=== PATIENT | female | born 1950 | race Caucasian/White ===

== ENCOUNTER 2025-03-25 10:24 | Emergency (ER) | payer MEDICARE, SELFPAY ==
--- NOTE | ~2025-03-25 | XR_ITS ---
CLINICAL HISTORY: injury --- Additional Notes or Special Instructions: she is ambulatory 5 view right wrist Comparison: None provided Findings: There is a mildly comminuted intra-articular distal right radial fracture. Chondrocalcinosis noted. Degenerative changes throughout the wrist. Impression: Mildly comminuted intra-articular distal right radial fracture with soft tissue edema. This document has been electronically signed by: Steve Valle MD on 03/25/2025 11:32:30
[2025-03-25 10:27] VITALS: BP 147/62; PULSE 72; RESP 16; TEMP 36.6; O2SAT 94; BMI 34.2
[2025-03-25 10:39] VITALS: BP 117/56; PULSE 68; PULSE 70; RESP 14; O2SAT 94; O2SAT 95
--- NOTE | 2025-03-25 10:43 | ED.UPPEXIN ---
HPI - Extremity Injury (Upper) General Chief Complaint: Fall Stated Complaint: r wrist inj fall Time Seen by Provider: 03/25/25 10:31 Source: patient Mode of arrival: ambulatory Limitations: no limitations History of Present Illness ED Provider: HPI narrative: 74-year-old woman, sustained a FOOSH injury to her right wrist, that was yesterday, presented to ER today with swelling and painful right wrist, she is right-hand dominant, denies any trauma to the head and neck all extremities has been ambulatory. This was a nonsyncopal fall Related Data Previous Rx's ?Medication ?Instructions ?Recorded oxycodone 5 mg tablet 5 mg PO Q6H PRN pain #10 tabs 03/25/25 Allergies Allergy/AdvReac Type Severity Reaction Status Date / Time No Known Allergies Allergy Verified 03/25/25 10:28 Review of Systems Constitutional: Constitutional: Reports as per [facility] Social History Social History Smoked in Last 30 Days: No Use of substances other than those prescribed or required for medical reasons: No Advance Directives: Yes Advance Directives Information Provided: No Advance Directives on File: No Do you have a plan to hurt others: No Plan Physical Exam Vital Signs: Vital Signs: Last Vital Signs Temp 98 F 03/25/25 10:27 Pulse 68 03/25/25 10:39 Resp 14 03/25/25 10:39 BP 117/56 L 03/25/25 10:39 Pulse Ox 95 03/25/25 10:39 O2 Del Method Room Air 03/25/25 10:39 BMI result Body Mass Index 34.2 Const: Other: Gen: ?Overall well-appearing patient, no trauma MSK: Full range of motion of the right elbow, right shoulder, swelling with hematoma over the dorsum of right wrist, radial ulnar +2 she is able to spread her fingers, not fully able to make a fist due to swelling, is able to hitchhike a thumb Skin: Warm, dry, intact, Neuro: ?Alert and oriented x3, moving upper and lower extremities symmetrically, no obvious facial asymmetry noted Medications Administered Discontinued Medications Generic Name Dose Route Start Last Admin Trade Name Freq PRN Reason Stop Dose Admin Acetaminophen 975 mg 03/25/25 10:40 03/25/25 10:59 Acetaminophen 325 Mg Tablet PO 03/25/25 10:41 975 mg ONCE ONE Administration Oxycodone HCl 5 mg 03/25/25 10:40 03/25/25 11:00 Oxycodone Hcl Immed Release 5 Mg Tablet PO 03/25/25 10:41 5 mg ONCE ONE Administration Medical Decision Making Medical Decision Making [facility] Narrative: Nonsyncopal fall did not feel further workup such as ECG a blood work was indicated, no head trauma no neck trauma after a fall did not feel further imaging such as CT of the brain or cervical spine is indicated, she has swelling of the distal radius, likely Colles fracture, closed without neurovascular compromise, we will obtain imaging determined whether she needs reduction or just splinting for alignment and ortho follow up 1157: Splint applied, and sent patient is in for to orthopedic PA covering to make sure she has an appointment and providing of the referral as well, patient is doing well Differential Diagnosis Differential Diagnoses: The differential diagnosis associated with the presentation includes See above Independent Interpretation I performed an independent interpretation of an: Plain X-Ray Interpretation: Patient has nondisplaced distal radius fracture with intra-articular component, my independent interpretation Radiology Impression Discussion of test interpretation with radiology: I have reviewed the radiologist's reading. Radiologist Impression: Mildly comminuted intra-articular distal right radial fracture with soft tissue edema. Procedures Orthopedic Splinting/Casting Injury #1: Side: right Upper Extremity Injury Location: wrist Upper Extremity Immobilizer: sugar tong splint Discharge Plan Discharge Clinical Impression: Distal radial fracture Qualifiers: Encounter type: initial encounter Fracture type: closed Fracture morphology: Colles' Laterality: right Qualified Code(s): S52.531A - Colles' fracture of right radius, initial encounter for closed fracture Patient Disposition: Home, Self-Care Instructions: Arm Fracture in Adults (ED) Additional Instructions: Keep the wrist in splint, elevated above heart level throughout the day, [address] a few pillows to keep it elevated to decrease the swelling, keep the splint clean dry and in place, Tylenol 975 mg every 6 hours as needed for pain with oxycodone for additional pain control if required, be mindful as it can make you drowsy make sure do not mix with alcohol marijuana, any other issues concerns any worsening pain worsening swelling inability to move your digits come back to the ER Prescriptions: New oxycodone 5 mg tablet 5 mg PO Q6H PRN (Reason: pain) Qty: 10 0RF Rx Instructions: Partial Fill upon patient request. Referrals: [facility] [place] Orthopedic Surgeons [Provider Group, Orthopedics] - 1 week Clinical Impression: Distal radial fracture Print Language: Albanian
--- NOTE | 2025-03-25 10:45 | PC.NURSE ---
Patient A&Ox 3. Patient presents to ED c/o right wrist pain after a fall at home. Pain rated 5/10 non radiating. Right wrist swollen and warm +CMS +ROM in fingers limited ROM in right wrist. Intermittent numbness noted, none at this time. No precipitating factors before fall, patient just lost balance. Denies headstrike, LOC, SOB. VSS and up to date. Plan of care on going.
[2025-03-25] MEDS: Acetaminophen 325 MG TABLET 975 MG PO (10:59)
[2025-03-25] MEDS: oxyCODONE HCl Immed Release 5 MG TABLET PO (11:00)
[2025-03-25 12:21] VITALS: BP 172/93; PULSE 82; RESP 16; TEMP 36.4; O2SAT 100
[2025-03-25 12:27] VITALS: BP 172/93; PULSE 82; RESP 16; TEMP 36.4; O2SAT 100
== END 2025-03-25 12:30 | disposition home or self-care (01) ==
PROVIDERS: Emergency Provider Emergency Medicine; PCP Internal Medicine
DX: S52.531A Colles' fracture of right radius, initial encounter for closed fracture (principal); W01.0XXA Fall on same level from slipping, tripping and stumbling without subsequent striking against object, initial encounter; M25.531 Pain in right wrist; Y93.E5 Activity, floor mopping and cleaning; Y92.019 Unspecified place in single-family (private) house as the place of occurrence of the external cause; Y99.9 Unspecified external cause status
CPT/HCPCS: 29125; 73110; 99283; 99284

== ENCOUNTER → 2025-03-25 10:40 | Outpatient (BNV) | payer MEDICARE, SELFPAY | PROVIDERS: Emergency Provider Emergency Medicine; PCP Internal Medicine; Visit Provider Radiology Vascular & Interventional Radiology | DX: S52.571A Other intraarticular fracture of lower end of right radius, initial encounter for closed fracture (principal) | CPT/HCPCS: 73110 ==

== ENCOUNTER 2025-03-31 13:16 | Outpatient (REF) | payer MEDICARE, SELFPAY ==
--- NOTE | ~2025-03-31 | XR_ITS ---
CLINICAL HISTORY: M25.531 - Pain in right wrist Right wrist three views Comparison: 03/25/2024 Findings: No change in distal radial fracture. No new bony abnormality identified. Degenerative change throughout the wrist. No radiopaque foreign body noted. Impression: Unchanged distal radial fracture This document has been electronically signed by: Royer Alejandra MD on 04/01/2025 20:53:56
== END 2025-03-31 13:17 | disposition home or self-care (01) ==
LOC: HO.HOSX 13:16
PROVIDERS: PCP Internal Medicine
DX: S52.531A Colles' fracture of right radius, initial encounter for closed fracture (principal)
CPT/HCPCS: 25600; 73110; 99202

== ENCOUNTER 2025-03-31 13:16 | Outpatient (AMB) | payer MEDICARE, SELFPAY ==
--- NOTE | 2025-03-31 13:32 | MHC.OFFVIS ---
Vital Signs 03/31/25 13:43 Height 5 ft 3 in Weight 190 lb BMI 33.7 Handedness Right Intake Visit Reasons: FX-Right wrist intraarticular distal radius fx Intake Note: Lauryn 74 yr old right hand dominant female presents today for a fracture care visit for her right wrist fracture. States while at home she fell and put her hand out to break her fall. States she felt pain and was seen in ED following day where xrays were taken and was told she has a fracture. Patient was splinted and referred to orthopedic. Currently splint removed in office, states she has no pain however she does have swelling,limited ROM and discoloration. Allergies No Known Allergies Allergy (Verified 03/31/25 13:43) HPI HPI FX-Right wrist intraarticular distal radius fx: Details: Lauryn 74 yr old right hand dominant female presents today for a fracture care visit for her right wrist fracture. States while at home she fell and put her hand out to break her fall. States she felt pain and was seen in ED following day where xrays were taken and was told she has a fracture. Patient was splinted and referred to orthopedic. Currently splint removed in office, states she has no pain however she does have swelling,limited ROM and discoloration. [facility], [facility] Social History (Updated 03/31/25 @ 13:44 by BAHMAN Freitas) Current occupational status: retired Current occupation: rt hand Review of Systems Const All systems reviewed & are unremarkable except as noted in HPI and below Physical Exam Vital Signs: BMI result Body Mass Index 33.7 Extrem Other: Patient is alert, oriented, and in no acute distress. Neuro: Normal sensation of the tips of all digits of the right hand at this time Vascular: Cap refill brisk Pain: Tenderness to palpation about the right distal radius No discomfort with range of motion of the digits of the right hand ROM: Patient is able to make closed fist with the right hand Skin: No lacerations or abrasions. General: Significant edema and ecchymosis noted of the right wrist No erythema, open areas, evidence of infection Psych: Appears grossly normal Affect normal Attitude cooperative Office Procedures AMB Fracture Care Fracture Billing Code: Fracture Billing Code Results Reviewed Results Reviewed: X-rays obtained in the office today and independently reviewed by , Nitin Chirinos PA-C, demonstrate nondisplaced, comminuted, intra-articular fracture of the right distal radius Assessment & Plan Assessment & Plan (1) Distal radial fracture: Code(s): S52.509A - Unspecified fracture of the lower end of unspecified radius, initial encounter for closed fracture Category: Medical Qualifiers: Encounter type: initial encounter Fracture morphology: Colles' Fracture type: closed Laterality: right Qualified Code(s): S52.531A - Colles' fracture of right radius, initial encounter for closed fracture Plan 1. Right distal radius fracture Date of injury 03/25/2025 Patient is educated about this injury Patient is educated about the typical recovery course At this time, patient is placed into a short-arm splint Patient is educated on proper splint care and precautions Patient is amenable to this plan Follow-up in 2 weeks for reassessment, anticipate cast placement at that time, sooner with any acute concerns Orders: Orders XR wrist RT min 3V 03/31/25 M25.531 - Pain in right wrist Coding Level of Care Code New Pt Level 3 (75966) Diagnoses Distal radial fracture S52.531A Encounter type: initial encounter Fracture morphology: Colles' Fracture type: closed Laterality: right CPT Codes Fracture Care - Fracture Billing Code: Fracture Billing Code ([id number])
[2025-03-31 13:43] VITALS: BMI 33.7
--- OUTSIDE RECORDS SUMMARY | 2025-03-31 13:46 | XMS_ITS | Clinical Summary ---
Author Organization 175 [facility] Address [address] [place] [address] Phone Care Team Providers Care Probation And Parole Officer Name Role Phone Angie Ames MD Primary Care Provider [phone] Allergies No known active allergies Medications losartan (COZAAR) 50 mg tablet Take 1 Tablet by mouth daily. 09/18/20 23 Active oxymetazoline (No Drip) 0.05 % nasal spray 2 Sprays by Nasal route 2 times daily. 04/09/20 23 Active tacrolimus (PROTOPIC) 0.1 % ointment Apply small amount to affected areas BID for 4 weeks 04/01/20 21 Active ascorbic acid (VITAMIN C) 500 mg tablet Take 500 mg by mouth daily. Active calcitrioL (ROCALTROL) 0.25 mcg capsule Take 0.25 mcg by mouth daily. Active zinc sulfate (ZINCATE) 220 mg (50 mg elemental zinc) capsule Take 1 Tab by mouth daily. Active aspirin 81 mg EC tablet Take 81 mg by mouth daily. Active carvediloL (COREG) 12.5 mg tablet Take 1 tablet (12.5 mg total) by mouth 2 (two) times a day with meals. 180 tablet 3 08/29/20 24 Active famotidine (PEPCID) 20 mg tablet TAKE 1 TABLET BY MOUTH TWICE DAILY 180 tablet 3 10/16/19 25 Active sertraline (ZOLOFT) 100 mg tablet Take 1 tablet (100 mg total) by mouth 1 (one) time each day. 90 tablet 1 12/17/19 25 Active magnesium oxide (MAG-OX) 400 mg (241.3 elemental magnesium) tablet Take 1 tablet (400 mg total) by mouth 1 (one) time each day. 270 tablet 1 01/20/20 25 Active betamethasone, augmented, (DIPROLENE) 0.05 % ointment APPLY TOPICALLY TWICE DAILY 30 g 3 02/22/20 25 Active triamcinolone (KENALOG) 0.1 % cream Apply topically 1 (one) time each day. 60 g 1 02/25/20 25 Active loperamide (IMODIUM) 2 mg capsule Take 2 capsules (4 mg total) by mouth 3 (three) times a day. 540 capsule 1 03/28/20 25 Active loperamide (IMODIUM) 2 mg capsule TAKE 2 CAPSULES BY MOUTH 3 TIMES DAILY 02/08/20 24 025 Discontinued Active Problems Problem Noted Date Diagnosed Date Chronic pain of both knees 01/25/2024 Gait instability 01/25/2024 Primary osteoarthritis of left knee 01/25/2024 Primary osteoarthritis of right knee 01/25/2024 Bacterial endocarditis 02/21/2021 Hypertension 03/10/2018 CKD (chronic kidney disease) stage 3, GFR 30-59 ml/min ([facility] V24, [facility] V28) 05/05/2017 Left heart failure ([facility] V24, [facility] V28) Allergic rhinitis 09/04/2015 Depression 09/04/2015 Vitamin B12 deficiency 02/27/2015 GERD (gastroesophageal reflux disease) 4 Immunizations Name Administration Dates Next Due Influenza trivalent, 0.5mL ( Fluzone High-dose) 65yo and older 07/06/2019 Influenza trivalent, with pr eservative (Fluzone; Afluria) 6mo and older 06/18/2018 Influenza, Unspecified 06/12/2022 [facility] SARS-CoV-2 COVID-19, mRNA, LNP-S, preservative free 02/07/2022 [facility] SARS-CoV-2 COVID-19, mRNA, LNP-S, preservative free 08/11/2021,01/12/2021,12/22/2020 Pneumococcal conjugate 13 va lent (Prevnar 13, PCV13) 2mo and older 09/10/2016 Pneumococcal polysaccharide 23 valent (Pneumovax 23) 2yo and older 02/14/2015 Zoster recombinant (Shingrix ) 19yo and older 06/12/2022 Surgical History Surgery Date Site/Laterality Comments HERNIA REPAIR PROCEDURE: HISTORICAL HERNIA REPAIR/[facility] HYSTERECTOMY PROCEDURE: HISTORICAL HYSTERECTOMY OTHER SURGICAL HISTORY PROCEDURE: VA COLECTOMY TOT ABDL W/PROCTECTOMY W/CONTNT ILEOST OTHER SURGICAL HISTORY PROCEDURE: HISTORY OTHER; COMMENT: reversal ileostomy Medical History Medical History Date Comments CKD (chronic kidney disease) stage 3, GFR 30-59 ml/min ([facility] V24, [facility] V28) 05/05/2017 DX:CKD (chronic kidney disea se) stage 3, GFR 30-59 ml/min ([facility]) Allergic rhinitis 09/04/2015 DX:Allergic rh initis Depression 09/04/2015 DX:Depression GERD (gastroesophageal reflux disease) 12/14/2013 DX:GERD (gastroesophageal reflux disease) History of uterine cancer 02/22/2013 DX:His tory of uterine cancer Hypertension 03/10/2018 DX:Hypertension Left heart failure ([facility] V24, [facility] V28) 05/02/2016 DX:Left heart failure ([facility]) Vitamin B12 deficiency 02/27/2015 DX:Vitami n B12 deficiency Family History Medical History Relation Name Comments Prostate cancer Brother Heart attack Father Hyperlipidemia Father Hyperlipidemia Mother Relation Name Status Comments Brother Father Mother Social History Tobacco Use Types Packs/Day Years Used Date Smoking Tobacco: Former Smokeless Tobacco: Never Alcohol Use Standard Drinks/Week Comments No 0 (1 standard drink = 0.6 oz pur e alcohol) Comments Unknown Sex and Gender Information Value Date Recorded Sex Assigned at Not on file Legal Sex Female 3:29 PM EST Gender Identity Not on file Sexual Orientation Not on file Obstetrics History Last Filed Vital Signs Vital Sign Reading Time Taken Comments Blood Pressure 130/80 09/20/2024 2:49 PM EST Pulse 87 09/20/2024 2:48 PM EST Temperature 36.6 C (97.8 F) 09/20/2024 2:48 PM EST Respiratory Rate - - Oxygen Saturation 96% 09/20/2024 2:48 PM EST Inhaled Oxygen Concentration - - Weight 81.6 kg (180 lb) 11/03/2024 3:49 PM EST Height 160 cm (5' 2.99 ) 11/03/2024 3:49 PM EST Body Mass Index 31.89 11/03/2024 3:49 PM EST Plan of Treatment Upcoming Encounters Date Type Department Care Team (Late st Contact Info) Description 04/25/2025 3:30 PM EDT Office Visit Orthopedic Surgery - [place] [address] [phone] Yaya Whitlock, DPM [address] [phone] Health Maintenance Due Date Last Done Comments DTaP,Tdap,and Td Vaccines (1 - Tdap) 12[birth year]26/1969 Hepatitis C Screening 09/13/2022 Osteoporosis Screening (Bone Density Screening) 09/13/2022 Social Influencers of Health Screening 09/13/2022 COVID-19 Vaccine (8 - Pfizer risk season) 2025 07/10/2024, 08/08/2023, 08/07/2022, Additional history exists Depression Screening 03/21/2025 03/21/2024 Falls Risk Assessment 03/21/2025 03/21/2024 Medicare Annual Wellness Visit 03/21/2025 03/21/2024 Hypertension/CHF/CAD Annual BMP Blood Test 09/23/2025 09/23/2024, 03/25/2024, 03/25/2024, Additional history exists Cholesterol Screening (Lipid Panel) 03/25/2029 03/25/2024, 03/25/2024 Pneumococcal Vaccine: 50+ Years Completed 06/18/2018, 09/10/2016, 02/14/2015, Additional history exists Zoster Vaccines Completed 12/15/2022, 06/12/2022 Breast Cancer Screening Discontinued 08/21/20, 08/19/2022, 08/16/2021, Additional history exists Influenza Vaccine Completed 07/23/2024, , 07/17/2022, Additional history exists RSV Immunization Adult Patients Completed 08/26/2024 HIB Vaccines Aged Out No longer eligi ble based on patient's age to complete this topic HPV Vaccines Aged Out No longer eligi ble based on patient's age to complete this topic Hepatitis A Vaccines Aged Out No long er eligible based on patient's age to complete this topic Hepatitis B Vaccines Aged Out No long er eligible based on patient's age to complete this topic IPV Vaccines Aged Out No longer eligi ble based on patient's age to complete this topic MMR Vaccines Aged Out No longer eligi ble based on patient's age to complete this topic Meningococcal ACWY Vaccine Aged Out N o longer eligible based on patient's age to complete this topic Meningococcal B Vaccine Aged Out No l onger eligible based on patient's age to complete this topic RSV Immunization Patients Under 20 months Aged Out No longer eligible based on patient's age to complete this topic Varicella Vaccines Aged Out No longer eligible based on patient's age to complete this topic Procedures Procedure Name Priority Date/Time Associated Diagnosis Comments COMPREHENSIVE METABOLIC PANEL Routine 09/23/2024 11:36 AM EST Rib pain on left side Primary hypertension Stage 3a chronic kidney disease (CMS/HCC V24, CMS/HCC V28) Vitamin B12 deficiency Depression, unspecified depression type Hypomagnesemia LIPID PANEL Routine 03/25/2024 DEPRESSION SCREENING Routine 03/21/2024 FALLS RISK ASSESSMENT Routine 03/21/2024 ROSA SCREENING DIGITAL Routine 08/21/2023 9:30 AM EST Encounter for screening mammogram for malignant neoplasm of breast from Last 3 Months or Most Recently Relevant to Health Maintenance Results * (ABNORMAL) Comprehensive metabolic panel (09/23/2024 11:36 AM EST) Sodium 141 133 - 145 mmol/L LAB CHEMISTRY METHOD 09/23/2024 3:49 PM EST [facility] Potassium 4.6 3.5 - 5.5 mmol/L LAB CHEMISTRY METHOD 09/23/2024 3:49 PM EST [facility] Chloride 112(H) 96 - 110 mmol/L LAB CHEMISTRY METHOD 09/23/2024 3:49 PM EST [facility] CO2 24 21 - 32 mmol/L LAB CHEMISTRY METHOD 09/23/2024 3:[address] [facility] Anion Gap 5 3 - 11 LAB CHEMISTRY METHOD 09/23/2024 3:[address] [facility] Glucose 97 70 - 100 mg/dL LAB CHEMISTRY METHOD 09/23/2024 3:[address] [facility] BUN 23 5 - 25 mg/dL LAB CHEMISTRY METHOD 09/23/2024 3:[address] [facility] Creatinine 1.45(H) 0.50 - 1.10 mg/dL LAB CHEMISTRY METHOD 09/23/2024 3:[address] [facility] eGFR 38(L) >=60 mL/min/1. 73m2 LAB CHEMISTRY METHOD 09/23/2024 3:[address] [facility] Comment:Calculation based on the Chronic Kidney Disease Epidemiology Collaboration (CKD-EPI) equation refit without adjustment for race. BUN/Creatinine Ratio 15.9 LAB CHEMISTRY METHOD 09/23/2024 3:[address] [facility] Calcium 8.8 8.5 - 10.5 mg/dL LAB CHEMISTRY METHOD 09/23/2024 3:[address] [facility] AST (SGOT) 13 10 - 42 unit/L LAB CHEMISTRY METHOD 09/23/2024 3:[address] [facility] ALT (SGPT) 18 10 - 60 unit/L LAB CHEMISTRY METHOD 09/23/2024 3:[address] [facility] Alkaline Phosphatase 127(H) 42 - 121 unit/L LAB CHEMISTRY METHOD 09/23/2024 3:[address] [facility] Total Protein 5.9(L) 6.0 - 8.0 g/dL LAB CHEMISTRY METHOD 09/23/2024 3:[address] [facility] Albumin 2.9(L) 3.2 - 5.0 g/dL LAB CHEMISTRY METHOD 09/23/2024 3:[address] [facility] Total Bilirubin 0.5 0.0 - 1.4 mg/dL LAB CHEMISTRY METHOD 09/23/2024 3:49 PM EST [facility] Blood Venous blood specimen / Unknown Venipuncture / Unknown 09/23/2024 11:36 AM EST 09/23/2024 11:36 AM EST Angie Ames MD LAB BLOOD ORDERABLES Final Res ult [facility] [address] [place] [address], * (ABNORMAL) Lipid panel (03/25/2024) LDL/HDL Ratio 4 0 - 4 Triglycerides 161(A) 0 - 150 mg/dL Cholesterol 175 0 - 200 mg/dL HDL 45 >=40 mg/dL LDL Cholesterol 98 0 - 100 mg/dL Blood Venous blood specimen / Unknown Historical Provider LAB BLOOD ORDERABLES Wendy l Result * Falls Risk Assessment (03/21/2024) Falls Risk Assessment Abstracted Historical Provider HEALTH MAINTENANCE Final Result * Depression Screening (03/21/2024) Pathologist [facility] Depression Screening Abstracted Historical Provider HEALTH MAINTENANCE Final Result * ROSA SCREENING DIGITAL (08/21/2023 9:30 AM EST) Anatomical Region Laterality Modality Mammography 08/21/2023 8:28 AM EST Narrative 08/21/2023 9:30 AM EST [facility] Diagnostic Imaging Department [address] [place], [place] [id number] Patient: LAURYN CALIXTO /Age/Sex: 1950 - 72 - F Unit#: [id number] Location/Status: SPDIMAM/REG CLI Mnemonic/Ordering Site: [facility] Ordering Physician: ANGIE AMES MD [facility] Screening Digital - 08/21/23847 Report Status:Signed EXAM: [facility] Screening Digital EXAM DATE AND TIME: 08/21/2023 8:48 AM HISTORY: Screening. Left breast biopsy in 2010, pathology benign. Personal history of endometrial carcinoma. Maternal aunt had breast carcinoma. COMPARISON: 08/19/22, 08/16/21, 08/14/20 TECHNIQUE: Bilateral digital breast tomosynthesis was performed in the CC and MLO projections. Computer aided detection with Show[employer] 3D 3.1 was employed. TISSUE DENSITY: a. The breasts are almost entirely fatty. FINDINGS: No suspicious masses, grouped microcalcifications, or areas of architectural distortion are seen. Benign rim calcifications are again seen. Vascular calci fications are present. The skin is unremarkable. IMPRESSION: Stable mammographic appearance of the breasts. No evidence of malignancy is seen. A negative mammogram in the presence of a clinically suspicious palpable abnormality does not preclude the possibility of malignancy or alter the indications for biopsy. BI-RADS: Category 2: Benign RECOMMENDATION(S): 1: Routine screening mammogram BILATERAL in 1 year. Dictating Physician: JESS POPE MD Electronically Signed by: JESS POPE MD Dic Date/Time: 08/21/23925 Sign date/Time: 08/21/23929 Procedure Note Jess Pope MD - 11/10/2023 [facility] Diagnostic Imaging Department [address] [place] [address] Patient: LAURYN CALIXTO /Age/Sex: 1950 - 72 - F Unit#: [id number] Location/Status: SPDIMAM/REG CLI Mnemonic/Ordering Site: [facility] Ordering Physician: ANGIE AMES MD [facility] Screening Digital - 08/21/2348 Report Status:Signed EXAM: [facility] Screening Digital EXAM DATE AND TIME: 08/21/2023 8:48 AM HISTORY: Screening. Left breast biopsy in 2010, pathology benign.Personal history of endometrial carcinoma. Maternal aunt had breast carcinoma. COMPARISON: 08/19/22, 08/16/21, 08/14/20 TECHNIQUE: Bilateral digital breast tomosynthesis was performed in the CCand MLO projections. Computer aided detection with [employer] | 3pay AI 3D 3.1was employed. TISSUE DENSITY: a. The breasts are almost entirely fatty. FINDINGS: No suspicious masses, grouped microcalcifications, or areas ofarchitectural distortion are seen. Benign rim calcifications are again seen. Vascularcalci fications are present. The skin is unremarkable. IMPRESSION: Stable mammographic appearance of the breasts. No evidence of malignancyis seen. A negative mammogram in the presence of a clinically suspicious palpable abnormality does not preclude the possibility of malignancy or alter the indications for biopsy. BI-RADS: Category 2: Benign RECOMMENDATION(S): 1: Routine screening mammogram BILATERAL in 1 year. Dictating Physician: JESS POPE MD Electronically Signed by: EJSS POPE MD Dic Date/Time: 08/21/23925 Sign date/Time: 08/21/23929 Angie Ames MD IMG BI PROCEDURES Final Result from Last 3 Months or Most Recently Relevant to Health Maintenance Insurance [facility] Care Teams Probation And Parole Officer Relationship Specialty Start Date End Date Angie Ames MD [address] [place] [phone] PCP - General Internal Medicine 08/17/18"
== END 2025-03-31 14:21 | disposition home or self-care (01) ==
LOC: HO.HOS 13:16
PROVIDERS: PCP Internal Medicine
DX: S52.531A Colles' fracture of right radius, initial encounter for closed fracture (principal)
CPT/HCPCS: 25600; 99203

== ENCOUNTER → 2025-03-31 13:19 | Outpatient (BNV) | payer MEDICARE, SELFPAY | PROVIDERS: PCP Internal Medicine; Visit Provider Radiology Diagnostic Radiology | DX: M25.531 Pain in right wrist (principal) | CPT/HCPCS: 73110 ==

== ENCOUNTER 2025-04-11 13:21 | Outpatient (REF) | payer MEDICARE, SELFPAY ==
--- NOTE | ~2025-04-11 | XR_ITS ---
EXAMINATION: XR WRIST, RIGHT CLINICAL INFORMATION: M25.531 - Pain in right wrist COMPARISON: March 31, 2025. TECHNIQUE: PA, lateral, and oblique views of the right wrist. FINDINGS: Intra-articular fracture distal epiphysis/metaphysis of the radius without callus formation. Osteopenia versus osteoporosis. Degenerative changes in the first carpometacarpal joint. Chondrocalcinosis in the ulnar carpal joint. XR/XR wrist RT min 3V IMPRESSION: Nonunion fracture, distal epiphysis/metaphysis, right radius. Electronically signed by: Terence Dietrich MD 04/11/2025 01:51 PM EDT
== END 2025-04-11 13:22 | disposition home or self-care (01) ==
LOC: HO.HOSX 13:21
PROVIDERS: PCP Internal Medicine; Visit Provider Orthopaedic Surgery
DX: S52.501A Unspecified fracture of the lower end of right radius, initial encounter for closed fracture (principal); M25.531 Pain in right wrist
CPT/HCPCS: 73110; 99212

== ENCOUNTER 2025-04-11 13:21 | Outpatient (AMB) | payer MEDICARE, SELFPAY ==
--- NOTE | 2025-04-11 13:23 | MHC.OFFVIS ---
Intake Visit Reasons: OV- Rt wrist intraarticular distal radius fx f/u Intake Note: Lauryn 74 yr old female presents today for her follow up visit for her Right distal radius fracture s/p falling at home on 03/25/2025. Patient last seen with Luna Taveras who placed patient in a splint due to increase swelling. Patient states she is doing well, has pain with certain movements, and no numbness or tingling. Allergies No Known Allergies Allergy (Verified 04/11/25 13:29) HPI HPI OV- Rt wrist intraarticular distal radius fx f/u: Details: Lauryn is a 74 year old right hand dominant woman who presents for a right distal radius fracture, S/P fall, DOI: 03/25/25. She says she is doing better with some decreased pain, though she still has swelling in her hand. She has been wearing a splint since her injury [facility] Social History (Updated 03/31/25 @ 13:44 by BAHMAN Freitas) Current occupational status: retired Current occupation: rt hand Review of Systems Const All systems reviewed & are unremarkable except as noted in HPI and below Physical Exam Const General: no acute distress and alert Orientation/consciousness: patient oriented x3 HEENT Head: Yes normocephalic and Yes atraumatic Eyes EOM: EOMs intact bilaterally Resp Effort & Inspection: normal respiratory effort and able to speak in complete sentences Cardio Jugular venous distension: no JVD Skin General skin exam: turgor normal Rashes: no rashes Neuro General: patient oriented x3 Extrem Other: Evaluation of Right Upper Extremity: The patient is alert, oriented, and in no acute distress Neuro: Median, Ulnar, Radial nerves motor and sensory intact and sensation is normal to the tips of all digits Vascular: Cap refill brisk ROM: She can bring her fingers almost close to a fist with encouragement. She does have some mild stiffness Skin: No lacerations or abrasions or evidence of open fracture General: Resolving ecchymosis in the palm, & swelling in her hand & just distal to where her splint was applied No Erythema or evidence of infection. Tender over the fracture site. No lacerations or evidence of open injury. No gross deformity. Good range of motion at the elbow including prono-supination without pain. Radiographs: 3 views of the right wrist were taken and viewed by me today in clinic. They show a comminuted intra-articular distal radius fracture, minimally displaced, with overall satisfactory fracture alignment and no appreciable change since her last radiographs. There may be a small step-off seen on the lateral view, but it also may be looking at the lunate versus scaphoid facets. Psych Appearance: grossly normal Affect: normal affect Attitude: cooperative Assessment & Plan Assessment & Plan (1) Fracture of right distal radius: Code(s): S52.501A - Unspecified fracture of the lower end of right radius, initial encounter for closed fracture Category: Medical Plan Assessment & Plan: 1. Right distal radius fracture, comminuted, intra-articular, minimally displaced S/P fall, DOI: 03/25/25 I educated her about this condition I discussed operative and non-operative treatment options We will continue to manage this non-operatively, and she is in agreement She was placed in a short arm cast, to be worn for the next 2 weeks I discussed activity modifications, she is to lift nothing heavier than a cellphone for the next 4 weeks. She is to avoid any impact activities or falls. She will perform gentle ROM exercises at home She will follow up in 2 weeks with JOZEF Taveras, with X-rays, 3V R wrist, OOP Scribed for Maliha Tan MD by Jamie Torres, vice president medical affairs, on 04/11/25 at 1:40 PM, EST. Orders: Orders XR wrist RT min 3V Today M25.531 - Pain in right wrist Coding Level of Care Code Global (56905) Diagnoses Fracture of right distal radius S52.501A
--- OUTSIDE RECORDS SUMMARY | 2025-04-11 14:02 | XMS_ITS | Patient Health Record ---
Author Organization [facility] Address [address] [place] [address] Care Team Providers Care Hospice Community Liaison Name Role Phone Kwaku SINGH, [facility] Primary Care Provider UnavailJd Vu Unavailable [phone] Reason For Referral No Information Medications Medication SIG (Take, Route, Frequency, Duration) Notes Start Date End Date Status amLODIPine Besylate 10 MG TAKE ONE TABLE T(S) EVERY DAY Oral; Duration: 30 Active Zinc Sulfate 220 MG TAKE ONE CAPSULE(S) ONCE A DAY BY MOUTH Oral; Duration: 30 Active Cephalexin 500 MG 1 tablet Orally Twic e a day; Duration: 10 day(s) Not-Taking Sodium Bicarbonate 650 MG TAKE ONE TABLE T(S) TWICE A DAY Oral; Duration: 30 Active Sertraline HCl 100 MG Oral; Duration: 090 Active traZODone HCl 150 MG TAKE ONE TABLET(S) BY MOUTH EVERY DAY AT BEDTIME Oral; Duration: 90 Active Loperamide HCl 2 MG TAKE 2 CAPSULES BY MOUTH EV GUSTAVO 3 HOURS NEEDED FOR LOOSE STOOLS Oral; Duration: 30 Active Fiber Active Ciprofloxacin HCl 500 MG ONE TABLET TWIC E A DAY FOR 10 DAYS.. Oral; Duration: 10 Active Ferrous Sulfate 325 (65 Fe) MG TAKE ONE TABLET(S) TWICE A DAY Oral; Duration: 30 Active Fluticasone Propionate 50 MCG/ACT SPRAY TWO SPRAY(S) INTO EAC H NOSTRIL EVERY DAY DIRE CTED. Nasal; Duration: 30 Active Calcium Carbonate 1250 MG TAKE ONE TABLE T(S) TWICE A DAY Oral; Duration: 30 Active Vitamin B-12 1000 MCG TAKE ONE TABLET(S) ONCE A DAY BY MOUTH Oral; Duration: 30 Active Ranitidine HCl 150 MG TAKE ONE TABLET BY MOUTH TWICE A DAY Oral; Duration: 90 Active Metoprolol Tartrate 50 MG 1 tablet Orall y Twice a day Active Magnesium Oxide 400 (240 Mg) MG TAKE ONE TABLET(S) THREE TIMES A DAY Oral; Duration: 30 Active NexIUM 40 MG TAKE ONE CAPSULE(S) EVERY DAY Oral; Duration: 30 Active Doxycycline Hyclate 100 MG TAKE ONE TABL ET BY MOUTH EVERY 12 HOURS Oral; Duration: 10 Active Problems Problem Type SNOMED Code ICD Code Onset Dates Problem Status W/U Status Risk Notes Problem Bilateral atherosclerosis of arteries of lower limbs (disorder) ([id number] ) Unspecified atherosclerosis of blackfeet arteries of extremities, bilateral legs (I70.203) Active confirmed Plan Of Treatment Pending Test Test Name Order Date [id number] Plate 12/12/2015 [id number] Debride <25 sq cm 12/26/2015 Insurance Providers Payer Name Payer Address Payer Phone Subscriber Number Group Number Insured Name Patient Relationship to Insured Coverage Start Date Coverage End Date Medicare National [employer] [address] [facility] [place] [address] [id number] JeisonAmber agustinn Self - patient is the insured 6 AARP Secondary to Medicare [address] [place] [id number] JayyuniorAmber augstinn Self - patient is the insured 6 Medical (General) History Medical History History ICD Code Anxiety Back,Hip,and Knee pain cancer Diverticulosis Hiatal hernia High blood pressure Poor circulation Reflux Stroke Measles Mumps Chicken pox Transfusions Surgical History Surgery Date(Month/Year) Gall bladder Hysterectomy 1999 part of Intestines removed 3 c-sections 1969,1973,1978
--- OUTSIDE RECORDS SUMMARY | 2025-04-11 14:02 | XMS_ITS | Clinical Summary ---
Author Organization 175 [facility] Address [address] [place] [address] Phone Care Team Providers Care Swedger Name Role Phone Lucille Ames MD Primary Care Provider [phone] Allergies No known active allergies Medications losartan [...] kidney disease) stage 3, GFR 30-59 ml/min ([facility] V24, [facility] V28) 05/05/2017 Left heart failure ([facility] V24, [facility] V28) Allergic rhinitis 09/04/2015 Depression 09/04/2015 Vitamin B12 deficiency 02/27/2015 GERD (gastroesophageal reflux disease) 4 Immunizations Name Administration Dates Next Due Influenza trivalent, 0.5mL ( Fluzone High-dose) 65yo and older 07/06/2019 Influenza trivalent, with pr eservative (Fluzone; Afluria) 6mo and older 06/18/2018 Influenza, Unspecified 06/12/2022 [facility] SARS-CoV-2 COVID-19, mRNA, LNP-S, preservative free 02/07/2022 [facility] SARS-CoV-2 COVID-19, mRNA, LNP-S, preservative free 08/11/2021,01/12/2021,12/22/2020 Pneumococcal conjugate 13 va lent (Prevnar 13, PCV13) 2mo and older 09/10/2016 Pneumococcal polysaccharide 23 valent (Pneumovax 23) 2yo and older 02/14/2015 Zoster recombinant (Shingrix ) 19yo and older 06/12/2022 Surgical History Surgery Date Site/Laterality Comments HERNIA REPAIR PROCEDURE: HISTORICAL HERNIA REPAIR/MARYANN HYSTERECTOMY PROCEDURE: HISTORICAL HYSTERECTOMY OTHER SURGICAL HISTORY PROCEDURE: AK COLECTOMY TOT ABDL W/PROCTECTOMY W/CONTNT ILEOST OTHER SURGICAL HISTORY PROCEDURE: HISTORY OTHER; COMMENT: reversal ileostomy Medical History Medical History Date Comments CKD (chronic kidney disease) stage 3, GFR 30-59 ml/min ([facility] V24, [facility] V28) 05/05/2017 DX:CKD (chronic kidney disea se) stage 3, GFR 30-59 ml/min ([facility]) Allergic rhinitis 09/04/2015 DX:Allergic rh initis Depression 09/04/2015 DX:Depression GERD (gastroesophageal reflux disease) 12/14/2013 DX:GERD (gastroesophageal reflux disease) History of uterine cancer 02/22/2013 DX:His tory of uterine cancer Hypertension 03/10/2018 DX:Hypertension Left heart failure ([facility] V24, [facility] V28) 05/02/2016 DX:Left heart failure ([facility]) Vitamin B12 deficiency 02/27/2015 DX:Vitami [...] Upcoming Encounters Date Type Department Care Team ([facility] st Contact Info) Description 04/25/2025 3:30 PM EDT Office Visit Orthopedic Surgery - [place] [address] [phone] Yaya Whitlock, DPM [address] [address] Health Maintenance Due Date Last Done Comments DTaP,Tdap,and Td Vaccines (1 - Tdap) 12[birth year]26/1969 Hepatitis C Screening 09/13/2022 Osteoporosis Screening (Bone Density Screening) 09/13/2022 Social Influencers of Health Screening 09/13/2022 COVID-19 Vaccine (8 - Pfizer risk season) 2025 07/10/2024, 08/08/2023, 08/07/2022, Additional history exists Depression Screening 03/21/2025 03/21/2024 Falls Risk Assessment 03/21/2025 03/21/2024 Medicare Annual Wellness Visit 03/21/2025 03/21/2024 Influenza Vaccine (#1) 2025 , 07/09/2023, 07/17/2022, Additional history exists Hypertension/CHF/CAD Annual BMP Blood Test 09/23/2025 09/23/2024, 03/25/2024, 03/25/2024, Additional history exists Cholesterol Screening (Lipid Panel) 03/25/2029 03/25/2024, 03/25/2024 Pneumococcal Vaccine: 50+ Years Completed 06/18/2018, 09/10/2016, 02/14/2015, Additional history exists Zoster Vaccines Completed 12/15/2022, 06/12/2022 Breast Cancer Screening Discontinued 08/21/20, 08/19/2022, 08/16/2021, Additional history exists RSV Immunization Adult Patients [...] Primary hypertension Stage 3a chronic kidney disease ([facility] V24, [facility] V28) Vitamin B12 deficiency Depression, unspecified depression [...] LAB CHEMISTRY METHOD 09/23/2024 3:49 PM EST [facility] Potassium 4.6 3.5 - 5.5 mmol/L LAB CHEMISTRY METHOD 09/23/2024 3:49 PM EST [facility] Chloride 112(H) 96 - 110 mmol/L LAB CHEMISTRY METHOD 09/23/2024 3:49 PM EST [facility] CO2 24 21 - 32 mmol/L LAB CHEMISTRY METHOD 09/23/2024 3:49 PM [facility] Anion Gap 5 3 - 11 LAB CHEMISTRY METHOD 09/23/2024 3:49 PM [facility] Glucose 97 70 - 100 mg/dL LAB CHEMISTRY METHOD 09/23/2024 3:49 PM [facility] BUN 23 5 - 25 mg/dL LAB CHEMISTRY METHOD 09/23/2024 3:49 PM [facility] Creatinine 1.45(H) 0.50 - 1.10 mg/dL LAB CHEMISTRY METHOD 09/23/2024 3:49 PM [facility] eGFR 38(L) >=60 mL/min/1. 73m2 LAB CHEMISTRY METHOD 09/23/2024 3:49 PM [facility] Comment:Calculation based on the Chronic Kidney Disease Epidemiology Collaboration (CKD-EPI) equation refit without adjustment for race. BUN/Creatinine Ratio 15.9 LAB CHEMISTRY METHOD 09/23/2024 3:49 PM [facility] Calcium 8.8 8.5 - 10.5 mg/dL LAB CHEMISTRY METHOD 09/23/2024 3:49 PM [facility] AST (SGOT) 13 10 - 42 unit/L LAB CHEMISTRY METHOD 09/23/2024 3:49 PM [facility] ALT (SGPT) 18 10 - 60 unit/L LAB CHEMISTRY METHOD 09/23/2024 3:49 PM [facility] Alkaline Phosphatase 127(H) 42 - 121 unit/L LAB CHEMISTRY METHOD 09/23/2024 3:49 PM [facility] Total Protein 5.9(L) 6.0 - 8.0 g/dL LAB CHEMISTRY METHOD 09/23/2024 3:49 PM [facility] Albumin 2.9(L) 3.2 - 5.0 g/dL LAB CHEMISTRY METHOD 09/23/2024 3:49 PM [facility] Total Bilirubin 0.5 0.0 - 1.4 mg/dL LAB CHEMISTRY METHOD 09/23/2024 3:49 PM EST [facility] Blood Venous blood specimen / Unknown Venipuncture / Unknown 09/23/2024 11:36 AM EST 09/23/2024 11:36 AM EST Lucille Ames MD LAB BLOOD ORDERABLES Final Res ult [facility] [address] [place] [address], * (ABNORMAL) Lipid panel (03/25/2024) LDL/HDL Ratio [...] Final Result * Depression Screening (03/21/2024) Pathologist Pending sale to [facility] Depression Screening Abstracted Historical Provider HEALTH MAINTENANCE Final Result * ROSA SCREENING DIGITAL (08/21/2023 9:30 AM EST) Anatomical Region Laterality Modality Mammography 08/21/2023 8:28 AM EST Narrative 08/21/2023 9:30 AM EST [facility] Diagnostic Imaging Department [address] [place], [place] [id number] Patient: MERNA CALIXTO /Age/Sex: 1950 72 - F Unit#: [id number] Location/Status: SPDIMAM/REG CLI Mnemonic/Ordering Site: [facility] Ordering Physician: LUCILLE AMES MD [facility] Screening Digital - 08/21/23 - 48 Report Status:Signed EXAM: [facility] Screening Digital EXAM DATE AND TIME: 08/21/2023 8:48 AM HISTORY: Screening. Left breast biopsy in 2010, pathology benign. Personal history of endometrial carcinoma. Maternal aunt had breast carcinoma. COMPARISON: 08/19/22, 08/16/21, 08/14/20 TECHNIQUE: Bilateral digital breast tomosynthesis was performed in the CC and MLO projections. Computer aided detection with [employer] 3D 3.1 was employed. TISSUE DENSITY: a. [...] mammogram BILATERAL in 1 year. Dictating Physician: SHELBY POPE MD Electronically Signed by: SHELBY POPE MD Dic Date/Time: 08/21/23925 Sign date/Time: 08/21/23929 Procedure Note Shelby Pope MD - 11/10/2023 [facility] Diagnostic Imaging Department [address] [place] [id number] Patient: MERNA CALIXTO /Age/Sex: 1950 - 72 - F Unit#: [id number] Location/Status: SPDIMAM/REG CLI Mnemonic[facility] Ordering Physician: LUCILLE AMES MD [facility] Screening Digital - 08/21/2348 Report Status:Signed EXAM: [facility] Screening Digital EXAM DATE AND TIME: 08/21/2023 8:48 AM HISTORY: Screening. Left breast biopsy in 2010, pathology benign.Personal history of endometrial carcinoma. Maternal aunt had breast carcinoma. COMPARISON: 08/19/22, 08/16/21, 08/14/20 TECHNIQUE: Bilateral digital breast tomosynthesis was performed in the CCand MLO projections. Computer aided detection with [employer] 3[employer] 3.1was employed. TISSUE DENSITY: a. The [...] mammogram BILATERAL in 1 year. Dictating Physician: SHELBY POPE MD Electronically Signed by: SHELBY POPE MD Dic Date/Time: 08/21/23925 Sign date/Time: 08/21/23929 Lucille Ames MD IMG BI PROCEDURES Final Result from Last 3 Months or Most Recently Relevant to Health Maintenance Insurance MEDICARE [facility] Care Teams Swedger Relationship Specialty Start Date End Date Lucille Ames MD [address] [phone] PCP - General Internal Medicine 08/17/18
--- OUTSIDE RECORDS SUMMARY | 2025-04-11 14:02 | XMS_ITS | Encounter Summary ---
Author Organization [facility], Address [address] [place] [address] Phone Care Team Providers Care Security And Compliance Analyst Name Role Phone Lucille Ames MD Primary Care Provider [phone] Reason for Visit * Reason Comments Med Refill Encounter Details Date Type Department Care Team (Late st Contact Info) Description 07/18/2024 Refill [facility] [address] [place] [phone] Tyshawn Waters, DO [address] [place] [address] Social History Tobacco Use Types Packs/Day Years Used Date Smoking Tobacco: Former Cigarettes Q uit: 10/05/1973 Alcohol Use Standard Drinks/Week Comments No 0 (1 standard drink = 0.6 oz pur e alcohol) Comments Unknown Sex and Gender Information Value Date Recorded Sex Assigned at Not on file Legal Sex Female 4:33 PM EST Gender Identity Not on file Sexual Orientation Not on file documented as of this encounter Plan of Treatment Not on file documented as of this encounter Visit Diagnoses Not on filedocumented in this encounter Care Teams Security And Compliance Analyst Relationship Specialty Start Date End Date Lucille Ames MD [address] [phone] PCP - General 08/09/19 documented as of this encounter
--- OUTSIDE RECORDS SUMMARY | 2025-04-11 14:02 | XMS_ITS | Clinical Summary ---
Author Organization [facility] Address [address] [place] [address] Care Team Providers Care Oil Refinery Process Technician Name Role Phone Lucille Ames Primary Care Provider [phone] Allergies No known active allergies Medications aspirin 81 mg EC tablet Active calcium carbonate (OS-STEPHEN) 500 mg calcium (1,250 mg) tablet Take 1 tablet by mouth 2 times a day. 6 Active prochlorperazine (COMPAZINE) 5 mg tablet Take 5 mg by mouth 4 times a day. 7 Active zinc sulfate (ZINCATE) 220 (50) mg capsule Take 220 mg by mouth daily. Active magnesium oxide 500 mg capsule Magnesium Oxide CAPS Refills: 0 Active Active metoprolol tartrate (LOPRESSOR) 50 mg tablet Metoprolol Tartrate 50 MG Oral Tablet TAKE 1 TABLET TWICE DAILY. Refills: 0 Active Active cpm-pseudoephed- acetaminophen (SINUTAB) 2-30-500 mg per tablet Multi-Day TABS Refills: 0 Active Active mupirocin (BACTROBAN) 2% cream Mupirocin Calcium 2 % External Cream Quantity: 30; Refills: 0 Started -Jul-2016 Active 6 Active traZODone (DESYREL) 150 mg tablet 7 Active sertraline (ZOLOFT) 100 mg tablet 7 Active cyanocobalamin (VITAMIN B12) 100 mcg tablet Vitamin B12 TABS Refills: 0 Active Active zinc acetate 25 mg (zinc) capsule Zinc CAPS Refills: 0 Active Active calcitriol (ROCALTROL) 0.25 mcg capsule Take 0.25 mcg by mouth. 11 8 Active loperamide (IMODIUM) 2 mg capsule 8 Active triamcinolone acetonide (KENALOG) 0.1% cream APPLY TO LEG/FOOT TWICE A DAY FOR 2 WEEKS THEN 1 WEEK OFF. AVOID FACE/BODY FOLDS 5 8 Active ranitidine (ZANTAC) 150 mg capsule RaNITidine HCl - 150 MG Oral Capsule Refills: 0 Active Active sodium bicarbonate 650 mg tablet Sodium Bicarbonate 650 MG Oral Tablet Refills: 0 Active Active Active Problems Problem Noted Date Diagnosed Date Recurrent ventral hernia 12/14/2017 Status post panniculectomy 08/31/2017 H/O ventral hernia repair 08/31/2017 Surgical follow-up care 11/28/2016 Hypertension 06/30/2016 CVA, old, hemiparesis 06/30/2016 Fungal dermatitis 06/30/2016 Panniculitis 06/30/2016 Family History Medical History Relation Name Comments Other Father Family History of cardiac disorder /Family History of dementia Other Mother Family History of dementia Relation Name Status Comments Father Mother Social History Tobacco Use Types Packs/Day Years Used Date Smoking Tobacco: Never Smokeless Tobacco: Never Comments:: Comments Unknown Sex and Gender Information Value Date Recorded Sex Assigned at Not on file Legal Sex Female 7:12 PM EDT Gender Identity Not on file Sexual Orientation Not on file Last Filed Vital Signs Vital Sign Reading Time Taken Comments Blood Pressure 152/84 08/15/2016 1:24 PM EST Pulse 74 08/15/2016 1:24 PM EST Temperature 36.6 C (97.9 F) 08/15/2016 1:24 PM EST Respiratory Rate - - Oxygen Saturation - - Inhaled Oxygen Concentration - - Weight 97.1 kg (214 lb) 04/29/2021 1:08 PM EDT Height 157.5 cm (5' 2 ) 04/29/2021 1:08 PM EDT Body Mass Index 39.14 04/29/2021 1:08 PM EDT Plan of Treatment Health Maintenance Due Date Last Done Comments Medicare AWV 1951 DTaP,Tdap,and Td Vaccines (1 - Tdap) 1970 Osteoporosis Screening 1998 Zoster Vaccines (1 of 2) 1998 Basic Metabolic Panel 02/19/2022 02/19/2021 , 11/21/2016, 11/14/2016 RSV Vaccine (60+ years old and patients) (1 - 1-dose 75+ series) 12/26/2023 COVID-19 Vaccine (2023- season) 2024 01/12/2021, 12/22/2020 Alcohol/Substance Use Screening 10/05/2024 Depression Screening and Follow-Up 10/05/2024 Health Care Proxy Review 10/05/2024 Social Drivers of Health Annual Screening 10/05/2024 Influenza Vaccine (#1) 2025 , 05/24/2020, 07/06/2019, Additional history exists Hepatitis C Screening Completed 11/21/2016 Pneumococcal Vaccine: 50+ Years Completed 06/18/2018, 09/10/2016, 11/07/2010 Hepatitis B Vaccines Aged Out No long er eligible based on patient's age to complete this topic Procedures * Due to [place] [employer] law, this organization might not be sharing negative HIV tests. Procedure Name Priority Date/Time Associated Diagnosis Comments HEPATITIS C ANTIBODY, CONVERSION STAT 11/21/2016 8:22 AM EST BASIC METABOLIC PANEL Routine 11/21/2016 6:44 AM EST from Last 3 Months or Most Recently Relevant to Health Maintenance Results * Due to [place] [employer] law, this organization might not be sharing negative HIV tests. * HEPATITIS C ANTIBODY, CONVERSION (11/21/2016 8:22 AM EST) Pathologist [facility] [place] Hepatitis C Antibody Source NON-REACTI VE NON-REACT [facility] Hep C Ab, Signal To Cutoff 0.02 <1.00 [facility] 11/21/2016 8:22 AM EST 11/21/2016 8:36 AM EST us Parker Ovalles MD LAB HISTORICAL RESULTS Final Result [facility] [address] [facility] [address], [place] [address], [place] [phone] * (ABNORMAL) Basic Metabolic Panel (11/21/2016 6:44 AM EST) Pathologist [facility] [place] Sodium Blood 136 135 - 145 mmol/L [facility] Potassium Blood 4.5 3.5 - 5.3 mmol/L [facility] Chloride Blood 106 97 - 110 mmol/L [facility] Carbon Dioxide 21(L) 24 - 32 mmol/L [facility] Gap 9 5 - 15 [facility] Glucose 80 70 - 99 mg/dL [facility] BUN 20 7 - 23 mg/dL [facility] Creatinine 1.30(H) 0.50 - 1.20 mg/dL [facility] eGFR Non- 41(L) >60 [facility] Comment: Units = mL/min/1.73 m2 Glomerular Filtration Rate (GFR) is estimated based on the IDMS-Traceable MDRD equation([facility]).For Americans multiply results by 1.210. Patients with CKD exhibit values less than 60mL/min/1.73 m2, while results less than 15mL/min/1.73 m2 are consistent with kidney failure. This MDRD equation is not recommended by [facility] for drug-dosing purposes or for children below 18 years of age. Calcium Blood 8.1(L) 8.7 - 10.7 mg/dL [facility] 11/21/2016 6:44 AM EST 11/21/2016 7:21 AM EST us Parker Ovalles MD LAB BLOOD ORDERABLES Final Re sult [facility] [address] [place] [address], from Last 3 Months or Most Recently Relevant to Health Maintenance Insurance MEDICARE [facility] AARP Care Teams Oil Refinery Process Technician Relationship Specialty Start Date End Date Lucille Ames [address] [place] [id number] PCP - General 04/23/17
== END 2025-04-11 14:20 | disposition home or self-care (01) ==
LOC: HO.HOS 13:21
PROVIDERS: PCP Internal Medicine; Visit Provider Orthopaedic Surgery
DX: S52.501A Unspecified fracture of the lower end of right radius, initial encounter for closed fracture (principal)
CPT/HCPCS: 99024

== ENCOUNTER → 2025-04-11 13:33 | Outpatient (BNV) | payer MEDICARE, SELFPAY | PROVIDERS: PCP Internal Medicine; Visit Provider Radiology Diagnostic Radiology | DX: S52.591K Other fractures of lower end of right radius, subsequent encounter for closed fracture with nonunion (principal) | CPT/HCPCS: 73110 ==

== ENCOUNTER 2025-04-28 08:32 | Outpatient (REF) | payer MEDICARE, SELFPAY ==
--- NOTE | ~2025-04-28 | XR_ITS ---
EXAMINATION: XR WRIST, RIGHT CLINICAL INFORMATION: M25.531 - Pain in right wrist COMPARISON: 04/11/2025, 03/31/2025, 03/25/2025. TECHNIQUE: PA, lateral, and oblique views of the right wrist. FINDINGS: There is diffuse disuse osteopenia. There is redemonstration of mildly comminuted intra-articular distal radial fracture, minimally displaced, in stable alignment with no articular step-off. Fracture line is still visible although slightly less distinct. No additional fractures or malalignment. Chondrocalcinosis of the wrist and TFCC. Blunting of the ulnar styloid. Moderate to severe degenerative arthrosis in the first CMC joint, with mild changes in the STT joints. Mild radiocarpal joint space narrowing. There is improving soft tissue swelling. XR/XR wrist RT min 3V IMPRESSION: 1. Intra-articular minimally displaced mildly comminuted distal radial fracture in stable alignment. Fracture lines are still well visualized. 2. Disuse osteopenia. 3. Chondrocalcinosis of the TFCC. 4. Moderate degenerative arthritis in the first CMC joint. Electronically signed by: Jarrett Espinosa MD 04/28/2025 01:44 PM EDT
--- OUTSIDE RECORDS SUMMARY | 2025-04-28 08:45 | XMS_ITS ---
Author Name [facility] Organization [facility] Care Team Organization Name Specialty Phone Email Start Date End Da te [facility] Primary Care 08/12/2022 05/23/20 24
--- OUTSIDE RECORDS SUMMARY | 2025-04-28 08:45 | XMS_ITS | Clinical Summary ---
Author Organization [facility] Address [address] [place] [address] Phone Care Team Providers Care Hydraulic Press Servicer Name Role Phone Angie Amse MD Primary Care Provider [phone] Allergies No known active allergies Medications losartan (COZAAR) 50 mg tablet Take 1 Tablet by mouth daily. 3 Active oxymetazoline (No Drip) 0.05 % nasal spray 2 Sprays by Nasal route 2 times daily. 3 Active tacrolimus (PROTOPIC) 0.1 % ointment Apply small amount to affected areas BID for 4 weeks 1 Active ascorbic acid (VITAMIN C) 500 mg [...] a day with meals. 180 tablet 3 4 Active famotidine (PEPCID) 20 mg tablet TAKE 1 TABLET BY MOUTH TWICE DAILY 180 tablet 3 5 Active sertraline (ZOLOFT) 100 mg tablet Take 1 tablet (100 mg total) by mouth 1 (one) time each day. 90 tablet 1 5 Active magnesium oxide (MAG-OX) 400 mg (241.3 elemental magnesium) tablet Take 1 tablet (400 mg total) by mouth 1 (one) time each day. 270 tablet 1 5 Active betamethasone, augmented, (DIPROLENE) 0.05 % ointment APPLY TOPICALLY TWICE DAILY 30 g 3 5 Active triamcinolone (KENALOG) 0.1 % cream Apply topically 1 (one) time each day. 60 g 1 5 Active loperamide (IMODIUM) 2 mg capsule Take 2 capsules (4 mg total) by mouth 3 (three) times a day. 540 capsule 1 5 Active Active Problems Problem Noted Date Diagnosed Date Chronic pain of both knees 01/25/2024 Gait instability 01/25/2024 Primary osteoarthritis of left knee 01/25/2024 Primary osteoarthritis of right knee 01/25/2024 Bacterial endocarditis 02/21/2021 Hypertension 03/10/2018 CKD (chronic kidney disease) stage 3, GFR 30-59 ml/min ([facility] V24, [facility] V28) 05/05/2017 Left heart failure ([facility] V24, [facility] V28) Allergic rhinitis 09/04/2015 Depression 09/04/2015 Vitamin B12 deficiency 02/27/2015 GERD (gastroesophageal reflux disease) 4 Immunizations Name Administration Dates Next Due Influenza trivalent, 0.5mL ( Fluzone High-dose) 65yo and older 07/06/2019 Influenza trivalent, with pr eservative (Fluzone; Afluria) 6mo and older 06/18/2018 Influenza, Unspecified 06/12/2022 [facility] SARS-CoV-2 COVID-19, mRNA, LNP-S, preservative free 02/07/2022 [facility] SARS-CoV-2 COVID-19, mRNA, LNP-S, preservative free 08/11/2021,01/12/2021,12/22/2020 Pneumococcal conjugate 13 va lent (Prevnar 13, PCV13) 2mo and older 09/10/2016 Pneumococcal polysaccharide 23 valent (Pneumovax 23) 2yo and older 02/14/2015 Zoster recombinant (Shingrix ) 19yo and older 06/12/2022 Surgical History Surgery Date Site/Laterality Comments HERNIA REPAIR PROCEDURE: HISTORICAL HERNIA REPAIR/MARYANN HYSTERECTOMY PROCEDURE: HISTORICAL HYSTERECTOMY OTHER SURGICAL HISTORY PROCEDURE: [place]Y COLECTOMY TOT ABDL W/PROCTECTOMY W/CONTNT ILEOST OTHER SURGICAL HISTORY PROCEDURE: HISTORY OTHER; COMMENT: reversal ileostomy Medical History Medical History Date Comments CKD (chronic kidney disease) stage 3, GFR 30-59 ml/min ([facility] V24, [facility] V28) 05/05/2017 DX:CKD (chronic kidney disea se) stage 3, GFR 30-59 ml/min ([facility]) Allergic rhinitis 09/04/2015 DX:Allergic rh initis Depression 09/04/2015 DX:Depression GERD (gastroesophageal reflux disease) 12/14/2013 DX:GERD (gastroesophageal reflux disease) History of uterine cancer 02/22/2013 DX:His tory of uterine cancer Hypertension 03/10/2018 DX:Hypertension Left heart failure ([facility] V24, [facility] V28) 05/02/2016 DX:Left heart failure ([facility]) Vitamin B12 deficiency 02/27/2015 DX:Vitami n B12 [...] Care Team (Late st Contact Info) Description 07/03/2025 2:00 PM EDT Office Visit Orthopedic Surgery - [place] [address] [id number] Yaya Whitlock, DPM [address] [address] Health Maintenance Due Date Last Done Comments DTaP,Tdap,and Td Vaccines (1 - Tdap) 12/26/1967 Hepatitis C Screening 09/13/2022 Osteoporosis Screening (Bone Density Screening) 09/13/2022 Social Influencers of Health Screening 09/13/2022 Depression Screening 10/05/2024 03/21/2024 COVID-19 Vaccine (8 - Pfizer risk season) 2025 07/10/2024, 08/08/2023, 08/07/2022, Additional history exists Falls Risk Assessment 03/21/2025 03/21/2024 Medicare Annual [...] Procedure Name Priority Date/Time Associated Diagnosis Comments EXTERNAL XRAY REPORT 04/01/2025 COMPREHENSIVE METABOLIC PANEL Routine 09/23/2024 11:36 AM EST Rib pain on left side Primary hypertension Stage 3a chronic kidney disease ([facility] V24, [facility] V28) Vitamin B12 deficiency Depression, unspecified depression type Hypomagnesemia LIPID PANEL Routine 03/25/2024 DEPRESSION SCREENING Routine 03/21/2024 FALLS RISK ASSESSMENT Routine 03/21/2024 ROSA SCREENING DIGITAL Routine 08/21/2023 9:30 AM EST Encounter for screening mammogram for malignant neoplasm of breast from Last 3 Months or Most Recently Relevant to Health Maintenance Results * External Xray Report (04/01/2025) Anatomical Region Laterality Modality Radiographic Claribel ging Provider [facility] XR PROCEDURES Final Result * (ABNORMAL) Comprehensive metabolic panel (09/23/2024 11:36 AM EST) Sodium 141 133 - 145 mmol/L LAB CHEMISTRY METHOD 09/23/2024 3:49 PM EST [facility] Potassium 4.6 3.5 - 5.5 mmol/L LAB CHEMISTRY METHOD 09/23/2024 3:49 PM EST [facility] Chloride 112(H) 96 - 110 mmol/L LAB CHEMISTRY METHOD 09/23/2024 3:49 PM [facility] CO2 24 21 - 32 mmol/L LAB CHEMISTRY METHOD 09/23/2024 3:49 PM [facility] Anion Gap 5 3 - 11 LAB CHEMISTRY METHOD 09/23/2024 3:49 PM [facility] Glucose 97 70 - 100 mg/dL LAB CHEMISTRY METHOD 09/23/2024 3:49 PM [facility] BUN 23 5 - 25 mg/dL LAB CHEMISTRY METHOD 09/23/2024 3:49 PM [facility] Creatinine 1.45(H) 0.50 - 1.10 mg/dL LAB CHEMISTRY METHOD 09/23/2024 3:49 PM [facility] eGFR 38(L) >=60 mL/min/1. 73m2 LAB CHEMISTRY METHOD 09/23/2024 3:49 PM [facility] Comment:Calculation based on the Chronic Kidney Disease Epidemiology Collaboration (CKD-EPI) equation refit without adjustment for race. BUN/Creatinine Ratio 15.9 LAB CHEMISTRY METHOD 09/23/2024 3:49 PM [facility] Calcium 8.8 8.5 - 10.5 mg/dL LAB CHEMISTRY METHOD 09/23/2024 3:49 PM [facility] AST (SGOT) 13 10 - 42 unit/L LAB CHEMISTRY METHOD 09/23/2024 3:49 PM [facility] ALT (SGPT) 18 10 - 60 unit/L LAB CHEMISTRY METHOD 09/23/2024 3:49 PM [facility] Alkaline Phosphatase 127(H) 42 - 121 unit/L LAB CHEMISTRY METHOD 09/23/2024 3:49 PM [facility] Total Protein 5.9(L) 6.0 - 8.0 g/dL LAB CHEMISTRY METHOD 09/23/2024 3:49 PM [facility] Albumin 2.9(L) 3.2 - 5.0 g/dL LAB CHEMISTRY METHOD 09/23/2024 3:49 PM EST [facility] Total Bilirubin 0.5 0.0 - 1.4 mg/dL LAB CHEMISTRY METHOD 09/23/2024 3:49 PM EST [facility] Blood Venous blood specimen / Unknown Venipuncture / Unknown 09/23/2024 11:36 AM EST 09/23/2024 11:36 AM EST Angie Ames MD LAB BLOOD ORDERABLES Final Res ult [facility] [address] [place] [address], * (ABNORMAL) Lipid panel (03/25/2024) LDL/HDL Ratio 4 0 - 4 Triglycerides 161(A) 0 - 150 mg/dL Cholesterol 175 0 - 200 mg/dL HDL 45 >=40 mg/dL LDL Cholesterol 98 0 - 100 mg/dL Blood Venous blood specimen / Unknown Historical Provider LAB BLOOD ORDERABLES Wendy l Result * Falls Risk Assessment (03/21/2024) Pathologist [facility] Falls Risk Assessment Abstracted Historical Provider HEALTH MAINTENANCE Final Result * Depression Screening (03/21/2024) Pathologist [facility] Depression Screening Abstracted Historical Provider HEALTH MAINTENANCE Final Result * ROSA SCREENING DIGITAL (08/21/2023 9:30 AM EST) Anatomical Region Laterality Modality Mammography 08/21/2023 8:28 AM EST Narrative 08/21/2023 9:30 AM EST [facility] Diagnostic Imaging Department [address] [place] [address] Patient: LAURYN CALIXTO /Age/Sex: 1950 - 72 - F Unit#: [id number] Location/Status: SPDIMAM/REG CLI Mnemonic/Ordering Site: DIGID/[facility] Ordering Physician: ANGIE AMES MD [facility] Screening Digital - 08/21/23 - 0848 Report Status:Signed EXAM: [facility] Screening Digital EXAM DATE AND TIME: 08/21/2023 8:48 AM HISTORY: Screening. Left breast biopsy in 2010, pathology benign. Personal history of endometrial carcinoma. Maternal aunt had breast carcinoma. COMPARISON: 08/19/22, 08/16/21, 08/14/20 TECHNIQUE: Bilateral digital breast tomosynthesis was performed in the CC and MLO projections. Computer aided detection with Talkray 3D 3.1 was employed. TISSUE DENSITY: a. [...] Procedure Note Jess Pope MD - 11/10/2023 [facility] Diagnostic Imaging Department [address] [place] [address] [id number] Patient: LAURYN CALIXTO /Age/Sex: 1950 - 72 - F Unit#: [id number] Location/Status: [facility]/REG CLI Mnemonic/Ordering Site: DIGID/[facility] Ordering Physician: ANGIE AMES MD [facility] Screening Digital - 08/21/2348 Report Status:Signed EXAM: [facility] Screening Digital EXAM DATE AND TIME: 08/21/2023 8:48 AM HISTORY: Screening. Left breast biopsy in 2010, pathology benign.Personal history of endometrial carcinoma. Maternal aunt had breast carcinoma. COMPARISON: 08/19/22, 08/16/21, 08/14/20 TECHNIQUE: Bilateral digital breast tomosynthesis was performed in the CCand MLO projections. Computer aided detection with Talkray 3D 3.1was employed. TISSUE DENSITY: a. The [...] Recently Relevant to Health Maintenance Insurance MEDICARE [facility] Care Teams Hydraulic Press Servicer Relationship Specialty Start Date End Date Angie Ames MD [address] [address] PCP - General Internal Medicine 08/17/18
--- OUTSIDE RECORDS SUMMARY | 2025-04-28 08:46 | XMS_ITS | Encounter Summary ---
Author Organization [facility], Address [address] [place] [address] Phone Care Team Providers Care Clothes Drier Assembler Name Role Phone Lucille Ames MD Primary Care Provider [phone] Reason for Visit * Reason Comments Med Refill Encounter Details Date Type Department Care Team (Late st Contact Info) Description 07/18/2024 Refill [facility] [address] [place] [phone] Tyshawn Waters, DO [address] [place] [address] Social History Tobacco Use Types Packs/Day Years [...] on filedocumented in this encounter Care Teams Clothes Drier Assembler Relationship Specialty Start Date End Date Lucille Amse MD [address] [address] PCP - General 08/09/19 documented as of this encounter
--- OUTSIDE RECORDS SUMMARY | 2025-04-28 08:46 | XMS_ITS | Clinical Summary ---
Author Organization [facility] Address [address] [place] [address] Care Team Providers Care Student Career Development Specialist Name Role Phone Lucille Ames Primary Care Provider Allergies No known active allergies Medications aspirin [...] complete this topic Procedures * Due to [place] [employer] law, this organization might not be sharing negative HIV tests. Procedure Name Priority Date/Time Associated Diagnosis Comments HEPATITIS C ANTIBODY, CONVERSION STAT 11/21/2016 8:22 AM EST BASIC METABOLIC PANEL Routine 11/21/2016 6:44 AM EST from Last 3 Months or Most Recently Relevant to Health Maintenance Results * Due to [place] [employer] law, this organization might not be sharing negative HIV tests. * HEPATITIS C ANTIBODY, CONVERSION (11/21/2016 8:22 AM EST) Pathologist [facility] Hepatitis C Antibody Source NON-REACTI VE NON-REACT [facility] Hep C Ab, Signal To Cutoff 0.02 <1.00 [facility] 11/21/2016 8:22 AM EST 11/21/2016 8:36 AM EST us Parker Ovalles MD LAB HISTORICAL RESULTS Final Result [facility] [address] [facility] 3rd Floor, [place] [address], [place] [phone] * (ABNORMAL) Basic Metabolic Panel (11/21/2016 6:44 AM EST) Pathologist [facility] Sodium Blood 136 135 - 145 mmol/L [facility] Potassium Blood 4.5 3.5 - 5.3 mmol/L [facility] Chloride Blood 106 97 - 110 mmol/L [facility] Carbon Dioxide 21(L) 24 - 32 mmol/L [facility] Gap 9 5 - 15 [facility] Glucose 80 70 - 99 mg/dL [facility] BUN 20 7 - 23 mg/dL [facility] Creatinine 1.30(H) 0.50 - 1.20 mg/dL [facility] eGFR Non- 41(L) >60 [facility] Comment: Units = mL/min/1.73 [...] Calcium Blood 8.1(L) 8.7 - 10.7 mg/dL [facility] 11/21/2016 6:44 AM EST 11/21/2016 7:21 AM EST us Parker Ovalles MD LAB BLOOD ORDERABLES Final Re sult [facility] [address] [place] [address], from Last 3 Months or Most Recently Relevant to Health Maintenance Insurance MEDICARE [facility] MCR SUPP AARP Care Teams Student Career Development Specialist Relationship Specialty Start Date End Date Lucille Ames [address] [place] [address] PCP - General 04/23/17
--- OUTSIDE RECORDS SUMMARY | 2025-04-28 08:46 | XMS_ITS | Patient Health Record ---
Author [facility] Address [address] [place] [address] Care Team Providers Care Food Service Supervisor Name Role Phone Kwaku SINGH, [facility] Primary Care Provider UnavailJd Vu Unavailable [phone] Reason For Referral No Information Medications Medication [...] atherosclerosis of arteries of lower limbs (disorder) ([id number] ) Unspecified atherosclerosis of [place] arteries of extremities, bilateral legs (I70.203) Active confirmed Plan Of Treatment Pending Test Test Name Order Date [id number] Plate 12/12/2015 39137- Debride <25 sq cm 12/26/2015 Insurance Providers Payer Name Payer Address Payer Phone Subscriber Number Group Number Insured Name Patient Relationship to Insured Coverage Start Date Coverage End Date Medicare National Govt Svcs Inc [address] [place] [address] [id number] JeisonAmber agustinn Self - patient is the insured 6 AARP Secondary to Medicare [address] [place] [address] [id number] JayyuniorAmber agustinn Self - patient is the insured 6 Medical (General) History Medical History History ICD Code Anxiety Back,Hip,and Knee pain cancer Diverticulosis Hiatal hernia High blood pressure Poor circulation Reflux Stroke Measles Mumps Chicken pox Transfusions Surgical History Surgery Date(Month/Year) Gall bladder Hysterectomy 1999 part of Intestines removed 3 c-sections 1969,1973,1978
== END 2025-04-28 08:33 | disposition home or self-care (01) ==
LOC: HO.HOSX 08:32
DX: S52.501A Unspecified fracture of the lower end of right radius, initial encounter for closed fracture (principal); M25.531 Pain in right wrist; X58.XXXA Exposure to other specified factors, initial encounter
CPT/HCPCS: 73110; 99212

== ENCOUNTER 2025-04-28 13:10 | Outpatient (AMB) | payer MEDICARE, SELFPAY ==
[2025-04-28 13:36] VITALS: BMI 33.7
--- NOTE | 2025-04-28 13:36 | A.OFFVIS_ITS ---
Vital Signs 04/28/25 13:36 Height 5 ft 3 in Weight 190 lb BMI 33.7 Intake Visit Reasons: OV - Right Distal Radius Fracture 03/25/25 Intake Note: Lauryn is a 74 year old right hand dominant female who presents today for a follow up s/p Right Distal Radius Fracture 03/25/25. At her last visit she was placed in a Short Arm Cast and instructed to lift nothing heavier than a cell phone with the right hand. Cast removed in office and xrays updated. STates she has a little soreness. Allergies No Known Allergies Allergy (Verified 04/28/25 13:37) HPI HPI OV - Right Distal Radius Fracture 03/25/25: Details: Lauryn is a 74 year old right hand dominant female who presents today for a follow up s/p Right Distal Radius Fracture 03/25/25. At her last visit she was placed in a Short Arm Cast and instructed to lift nothing heavier than a cell phone with the right hand. Cast removed in office and xrays updated. STates she has a little soreness with movement. Overall, patient reports that she has improved dramatically since date of injury. [facility] Social History Current occupational status: retired Current occupation: rt hand Review of Systems Const All systems reviewed & are unremarkable except as noted in HPI and below Physical Exam Vital Signs: BMI result Body Mass Index 33.7 Const General: no acute distress and alert Orientation/consciousness: patient oriented x3 HEENT Head: Yes normocephalic and Yes atraumatic Eyes EOM: EOMs intact bilaterally Resp Effort & Inspection: normal respiratory effort and able to speak in complete sentences Cardio Jugular venous distension: no JVD Skin General skin exam: turgor normal Rashes: no rashes Neuro General: patient oriented x3 Extrem Other: Evaluation of Right Upper Extremity: The patient is alert, oriented, and in no acute distress Neuro: Median, Ulnar, Radial nerves motor and sensory intact and sensation is normal to the tips of all digits Vascular: Cap refill brisk ROM: Patient can make a closed fist and extend all digits of the right hand fully Patient is able to flex to approximately 50 degrees and is able to extend to approximately 15-20 degrees Skin: No lacerations or abrasions or evidence of open fracture General: Ecchymosis has resolved No Erythema or evidence of infection. Tender over the fracture site. No lacerations or evidence of open injury. No gross deformity. Good range of motion at the elbow including prono-supination without pain. Radiographs: 3 views of the right wrist were taken and viewed by me today in clinic. They show a comminuted intra-articular distal radius fracture, minimally displaced, with overall satisfactory fracture alignment and no appreciable change since her last radiographs. There may be a small step-off seen on the lateral view, but it also may be looking at the lunate versus scaphoid facets. There is evidence of interval bony healing Psych Appearance: grossly normal Affect: normal affect Attitude: cooperative Assessment & Plan Assessment & Plan (1) Fracture of right distal radius: Code(s): S52.501A - Unspecified fracture of the lower end of right radius, initial encounter for closed fracture Category: Medical Plan 1. Right distal radius fracture Date of injury 03/25/2025 Patient appears to be recovering well from her injury Patient is educated about the typical recovery course At this time, patient is provided with a Velcro wrist splint to be worn with daytime activities Patient should remove the splint while at rest to work on range of motion of the right wrist Patient is also referred to occupational therapy for gentle range of motion of the right wrist Patient is amenable to this plan Follow-up in 4 weeks with repeat x-rays for reassessment, sooner with any acute concerns Orders: Orders XR wrist RT min 3V Today M25.531 - Pain in right wrist OT Evaluation and Treatment Today S52.501A - Unspecified fracture of the lower end of right radius, initial encounter for closed fracture Coding Level of Care Code Global (04607) Diagnoses Fracture of right distal radius S52.501A
== END 2025-04-28 14:06 | disposition home or self-care (01) ==
LOC: HO.HOS 13:11
PROVIDERS: PCP Internal Medicine
DX: S52.501A Unspecified fracture of the lower end of right radius, initial encounter for closed fracture (principal)
CPT/HCPCS: 99024

== ENCOUNTER → 2025-04-28 13:17 | Outpatient (BNV) | payer MEDICARE, SELFPAY | PROVIDERS: Visit Provider Radiology Diagnostic Radiology | DX: M85.841 Other specified disorders of bone density and structure, right hand (principal) | CPT/HCPCS: 73110 ==

== ENCOUNTER 2025-05-24 12:48 | Outpatient (REF) | payer MEDICARE, SELFPAY ==
--- NOTE | ~2025-05-24 | XR_ITS ---
EXAMINATION: XR WRIST, RIGHT CLINICAL INFORMATION: M25.531 - Pain in right wrist COMPARISON: April 28 and April 24, 2025 TECHNIQUE: PA, lateral, and oblique views of the right wrist. FINDINGS: There is diffuse osteopenia. Again seen is fracture of the distal radius extending to the articular surface. There is interval increasing density of the distal radius consistent with healing. There is also increasing density of periosteal new bone. There is mild narrowing of the first carpometacarpal joint and marginal osteophytes. XR/XR wrist RT min 3V IMPRESSION: Healing intra-articular fracture of the distal radius. Mild osteoarthritis the first CMC joint. Diffuse osteopenia. Electronically signed by: Humza Colin MD 05/24/2025 03:10 PM EDT
--- OUTSIDE RECORDS SUMMARY | 2025-05-24 13:39 | XMS_ITS | Patient Health Record ---
[facility] Address [address] [place] [address] Care Team Providers Care Cup Setter Lockstitch Name Role Phone Kwaku SINGH, [facility] Primary Care Provider UnavailJd Vu Unavailable [phone] Reason For Referral No Information Medications Medication [...] atherosclerosis of arteries of lower limbs (disorder) ([id number] ) Unspecified atherosclerosis of [place] arteries of extremities, bilateral legs (I70.203) Active confirmed Plan Of Treatment Pending Test Test Name Order Date [id number] Plate 12/12/2015 81960- Debride <25 sq cm 12/26/2015 Insurance Providers Payer Name Payer Address Payer Phone Subscriber Number Group Number Insured Name Patient Relationship to Insured Coverage Start Date Coverage End Date Medicare National Govt Svcs Inc [address] [facility] [place] [address] [id number] JeisonAmber agustinn Self - patient is the insured 6 AARP Secondary to Medicare [address] [place] [address] [id number] JayyuniorAmber agustinn Self - patient is the insured 6 Medical (General) History Medical History History ICD Code Anxiety Back,Hip,and Knee pain cancer Diverticulosis Hiatal hernia High blood pressure Poor circulation Reflux Stroke Measles Mumps Chicken pox Transfusions Surgical History Surgery Date(Month/Year) Gall bladder Hysterectomy 1999 part of Intestines removed 3 c-sections 1969,1973,1978
--- OUTSIDE RECORDS SUMMARY | 2025-05-24 13:39 | XMS_ITS | Clinical Summary ---
Author Organization [facility] Address [address] [place] [address] Care Team Providers Care Sewer Pipe Sorter Name Role Phone Lucille Ames Primary Care Provider [phone] Allergies No known active allergies Medications aspirin 81 mg EC tablet Active calcium carbonate (OS-SETPHEN) 500 mg calcium (1,250 mg) tablet Take [...] complete this topic Procedures * Due to [place] [employer] law, this organization might not be sharing negative HIV tests. Procedure Name Priority Date/Time Associated Diagnosis Comments HEPATITIS C ANTIBODY, CONVERSION STAT 11/21/2016 8:22 AM EST BASIC METABOLIC PANEL Routine 11/21/2016 6:44 AM EST from Last 3 Months or Most Recently Relevant to Health Maintenance Results * Due to [place] [employer] law, this organization might not be sharing negative HIV tests. * HEPATITIS C ANTIBODY, CONVERSION (11/21/2016 8:22 AM EST) Pathologist [facility] Hepatitis C Antibody Source NON-REACTI VE NON-REACT [facility] Hep C Ab, Signal To Cutoff 0.02 <1.00 [facility] 11/21/2016 8:22 AM EST 11/21/2016 8:36 AM EST us Parker Ovalles MD LAB HISTORICAL RESULTS Final Result [facility] [address] [facility] 3rd Floor, [place] [address], [place] [phone] * (ABNORMAL) Basic Metabolic Panel (11/21/2016 6:44 AM EST) Pathologist [facility] Sodium Blood 136 135 - 145 mmol/L [facility] Potassium Blood 4.5 3.5 - 5.3 mmol/L [facility] Chloride Blood 106 97 - 110 mmol/L [facility] Carbon Dioxide 21(L) 24 - 32 mmol/L [facility] Gap 9 5 - 15 [facility] Glucose 80 70 - 99 mg/dL [facility] BUN 20 7 - 23 mg/dL [facility] Creatinine 1.30(H) 0.50 - 1.20 mg/dL [facility] eGFR Non- 41(L) >60 [facility] Comment: Units = [...] Calcium Blood 8.1(L) 8.7 - 10.7 mg/dL [facility] 11/21/2016 6:44 AM EST 11/21/2016 7:21 AM EST us Parker Ovalles MD LAB BLOOD ORDERABLES Final Re sult [facility] [address] [place] [address], from Last 3 Months or Most Recently Relevant to Health Maintenance Insurance MEDICARE [facility] MCR SUPP AARP Care Teams Sewer Pipe Sorter Relationship Specialty Start Date End Date Lucille Ames [address] [place] [id number] PCP - General 04/23/17
--- OUTSIDE RECORDS SUMMARY | 2025-05-24 13:39 | XMS_ITS | Encounter Summary ---
Author Organization [facility], Address [address] [place] [address] Phone Care Team Providers Care Electricians Top Helper Name Role Phone Lucille Ames MD Primary Care Provider [phone] Reason for Visit * Reason Comments Med Refill Encounter Details Date Type Department Care Team (Late st Contact Info) Description 07/18/2024 Refill [facility] [address] [place] [phone] Tyshawn Waters, DO [address] [place] [address] Social History Tobacco Use Types Packs/Day Years [...] on filedocumented in this encounter Care Teams Electricians Top Helper Relationship Specialty Start Date End Date Lucille Ames MD [address] [address] PCP - General 08/09/19 documented as of this encounter
--- OUTSIDE RECORDS SUMMARY | 2025-05-24 13:39 | XMS_ITS | Clinical Summary ---
Author Organization 175 [facility] Address [address] [place] [address] Phone Care Team Providers Care Supervisor Lime Name Role Phone Angie Ames MD Primary Care Provider [phone] Allergies No known active allergies Medications losartan [...] DAILY 180 tablet 3 10/16/19 25 Active magnesium oxide (MAG-OX) 400 mg [...] day. 540 capsule 1 03/28/20 25 Active sertraline (ZOLOFT) 100 mg tablet TAKE 1 TABLET BY MOUTH ONCE DAILY 90 tablet 3 05/15/20 25 Active sertraline (ZOLOFT) 100 mg tablet Take 1 tablet (100 mg total) by mouth 1 (one) time each day. 90 tablet 1 12/17/19 25 025 Discontinued Active Problems Problem Noted Date Diagnosed Date Chronic pain of both knees 01/25/2024 Gait instability 01/25/2024 Primary osteoarthritis of left knee 01/25/2024 Primary osteoarthritis of right knee 01/25/2024 Bacterial endocarditis 02/21/2021 Hypertension 03/10/2018 CKD (chronic kidney disease) stage 3, GFR 30-59 ml/min ([facility] V24, [facility] V28) 05/05/2017 Left heart failure ([facility] V24, [facility] V28) Allergic rhinitis 09/04/2015 Depression 09/04/2015 Vitamin B12 deficiency 02/27/2015 GERD (gastroesophageal reflux disease) 4 Immunizations Name Administration Dates Next Due Influenza trivalent, 0.5mL ( Fluzone High-dose) 65yo and older 07/06/2019 Influenza trivalent, with pr eservative (Fluzone; Afluria) 6mo and older 06/18/2018 Influenza, Unspecified 06/12/2022 [facility] SARS-CoV-2 COVID-19, mRNA, LNP-S, preservative free 02/07/2022 [facility] SARS-CoV-2 COVID-19, mRNA, LNP-S, preservative free 08/11/2021,01/12/2021,12/22/2020 Pneumococcal conjugate 13 va lent (Prevnar 13, PCV13) 2mo and older 09/10/2016 Pneumococcal polysaccharide 23 valent (Pneumovax 23) 2yo and older 02/14/2015 Zoster recombinant (Shingrix ) 19yo and older 06/12/2022 Surgical History Surgery Date Site/Laterality Comments HERNIA REPAIR PROCEDURE: HISTORICAL HERNIA REPAIR/MARYANN HYSTERECTOMY PROCEDURE: HISTORICAL HYSTERECTOMY OTHER SURGICAL HISTORY PROCEDURE: PA COLECTOMY TOT ABDL W/PROCTECTOMY W/CONTNT ILEOST OTHER SURGICAL HISTORY PROCEDURE: HISTORY OTHER; COMMENT: reversal ileostomy Medical History Medical History Date Comments CKD (chronic kidney disease) stage 3, GFR 30-59 ml/min ([facility] V24, [facility] V28) 05/05/2017 DX:CKD (chronic kidney disea se) stage 3, GFR 30-59 ml/min ([facility]) Allergic rhinitis 09/04/2015 DX:Allergic rh initis Depression 09/04/2015 DX:Depression GERD (gastroesophageal reflux disease) 12/14/2013 DX:GERD (gastroesophageal reflux disease) History of uterine cancer 02/22/2013 DX:His tory of uterine cancer Hypertension 03/10/2018 DX:Hypertension Left heart failure ([facility] V24, [facility] V28) 05/02/2016 DX:Left heart failure ([facility]) Vitamin B12 deficiency 02/27/2015 DX:Vitami n B12 [...] PM EDT Office Visit Orthopedic Surgery - [place] [address] [phone] Yaya Whitlock, DPTory [address] [address] Health Maintenance Due Date Last Done Comments [...] Completed 12/15/2022, 06/12/2022 Breast Cancer Screening Discontinued 08/21/20 23, 08/19/2022, 08/16/2021, Additional history exists RSV Immunization [...] Primary hypertension Stage 3a chronic kidney disease ([facility] V24, [facility] V28) Vitamin B12 deficiency Depression, unspecified depression type Hypomagnesemia LIPID PANEL Routine 03/25/2024 DEPRESSION SCREENING Routine 03/21/2024 FALLS RISK ASSESSMENT Routine 03/21/2024 ROSA SCREENING DIGITAL Routine 08/21/2023 9:30 AM EST Encounter for screening mammogram for malignant neoplasm of breast from Last 3 Months or Most Recently Relevant to Health Maintenance Results * External Xray Report (04/01/2025) Anatomical Region Laterality Modality Radiographic Claribel ging us Provider [facility] XR PROCEDURES Final Result * (ABNORMAL) Comprehensive metabolic panel (09/23/2024 11:36 AM EST) Sodium 141 133 - 145 mmol/L LAB CHEMISTRY METHOD 09/23/2024 3:49 PM EST [facility] Potassium 4.6 3.5 - 5.5 mmol/L LAB CHEMISTRY METHOD 09/23/2024 3:49 PM [facility] Chloride 112(H) 96 - 110 mmol/L LAB CHEMISTRY METHOD 09/23/2024 3:49 PM [facility] CO2 24 21 - 32 mmol/L LAB CHEMISTRY METHOD 09/23/2024 3:49 PM [facility] Anion Gap 5 3 - 11 LAB CHEMISTRY METHOD 09/23/2024 3:49 PM [facility] Glucose 97 70 - 100 mg/dL LAB CHEMISTRY METHOD 09/23/2024 3:49 PM [facility] BUN 23 5 - 25 mg/dL LAB CHEMISTRY METHOD 09/23/2024 3:49 PM [facility] Creatinine 1.45(H) 0.50 - 1.10 mg/dL LAB CHEMISTRY METHOD 09/23/2024 3:49 PM [facility] eGFR 38(L) >=60 mL/min/1. 73m2 LAB CHEMISTRY METHOD 09/23/2024 3:49 PM [facility] Comment:Calculation based on the Chronic Kidney Disease Epidemiology Collaboration (CKD-EPI) equation refit without adjustment for race. BUN/Creatinine Ratio 15.9 LAB CHEMISTRY METHOD 09/23/2024 3:49 PM [facility] Calcium 8.8 8.5 - 10.5 mg/dL LAB CHEMISTRY METHOD 09/23/2024 3:49 PM [facility] AST (SGOT) 13 10 - 42 unit/L LAB CHEMISTRY METHOD 09/23/2024 3:49 PM [facility] ALT (SGPT) 18 10 - 60 unit/L LAB CHEMISTRY METHOD 09/23/2024 3:49 PM [facility] Alkaline Phosphatase 127(H) 42 - 121 unit/L LAB CHEMISTRY METHOD 09/23/2024 3:49 PM [facility] Total Protein 5.9(L) 6.0 - 8.0 g/dL LAB CHEMISTRY METHOD 09/23/2024 3:49 PM EST [facility] Albumin 2.9(L) 3.2 - 5.0 g/dL LAB CHEMISTRY METHOD 09/23/2024 3:49 PM EST [facility] Total Bilirubin 0.5 0.0 - 1.4 mg/dL LAB CHEMISTRY METHOD 09/23/2024 3:49 PM EST [facility] Blood Venous blood specimen / Unknown Venipuncture / Unknown 09/23/2024 11:36 AM EST 09/23/2024 11:36 AM EST Angie Ames MD LAB BLOOD ORDERABLES Final Res ult [facility] [address] [place] [address], [place] [phone] * (ABNORMAL) Lipid panel (03/25/2024) LDL/HDL Ratio [...] MAINTENANCE Final Result * Depression Screening (03/21/2024) Depression Screening Abstracted Historical Provider HEALTH MAINTENANCE Final Result * ROSA SCREENING DIGITAL (08/21/2023 9:30 AM EST) Anatomical Region Laterality Modality Mammography 08/21/2023 8:28 AM EST Narrative 08/21/2023 9:30 AM EST [facility] Diagnostic Imaging Department [address] [place] [address] Patient: LAURYN CALIXTO /Age/Sex: 1950 - 72 - F Unit#: [id number] Location/Status: SPDIMAM/REG CLI Mnemonic/Ordering Site: [facility] Ordering Physician: ANGIE AMES MD [facility] Screening Digital - 08/21/23 0848 Report Status:Signed EXAM: [facility] Screening Digital EXAM DATE AND TIME: 08/21/2023 8:48 AM HISTORY: Screening. Left breast biopsy in 2010, pathology benign. Personal history of endometrial carcinoma. Maternal aunt had breast carcinoma. COMPARISON: 08/19/22, 08/16/21, 08/14/20 TECHNIQUE: Bilateral digital breast tomosynthesis was performed in the CC and MLO projections. Computer aided detection with TapCrowd 3D 3.1 was employed. TISSUE DENSITY: a. [...] Procedure Note Jess Pope MD - 11/10/2023 [facility] Diagnostic Imaging Department [address] [place] [id number] Patient: LAURYN CALIXTO Madi /Age/Sex: 1950 - 72 - F Unit#: [id number] Location/Status: SPDIMAM/REG CLI Mnemonic/Ordering Site: [facility] Ordering Physician: ANGIE AMES MD [facility] Screening Digital - 08/21/23 - 48 Report Status:Signed EXAM: [facility] Screening Digital EXAM DATE AND TIME: 08/21/2023 8:48 AM HISTORY: Screening. Left breast biopsy in 2010, pathology benign.Personal history of endometrial carcinoma. Maternal aunt had breast carcinoma. COMPARISON: 08/19/22, 08/16/21, 08/14/20 TECHNIQUE: Bilateral digital breast tomosynthesis was performed in the CCand MLO projections. Computer aided detection with TapCrowd 3D 3.1was employed. TISSUE DENSITY: a. The [...] Recently Relevant to Health Maintenance Insurance MEDICARE [facility] Care Teams Supervisor Lime Relationship Specialty Start Date End Date Angie Ames MD [address] [phone] PCP - General Internal Medicine 08/17/18
== END 2025-05-24 12:49 | disposition home or self-care (01) ==
LOC: HO.HOSX 12:48
DX: S52.501A Unspecified fracture of the lower end of right radius, initial encounter for closed fracture (principal); M25.531 Pain in right wrist; X58.XXXA Exposure to other specified factors, initial encounter
CPT/HCPCS: 73110; 99212

== ENCOUNTER 2025-05-24 13:24 | Outpatient (AMB) | payer MEDICARE, SELFPAY ==
[2025-05-24 13:43] VITALS: BMI 33.7
--- NOTE | 2025-05-24 13:43 | A.OFFVIS_ITS ---
Vital Signs 05/24/25 13:43 Height 5 ft 3 in Weight 190 lb BMI 33.7 Intake Visit Reasons: OV-Right Distal Radius FX DOI 03/25/25 Intake Note: Lauryn is a 74 year old right hand dominant female who presents today for follow up status post right distal radius fracture, DOI: 03/25/25. At her last visit, she was provided with a Velcro wrist brace and was referred to occupational therapy for gentle range of motion. Patient reports today she is doing greater. She continues using her Velcro wrist brace. Denies numbness, tingling, finger locking. Allergies No Known Allergies Allergy (Verified 05/24/25 13:48) HPI HPI OV-Right Distal Radius FX DOI 03/25/25: Details: Lauryn is a 74 year old right hand dominant female who presents today for follow up status post right distal radius fracture, DOI: 03/25/25. At her last visit, she was provided with a Velcro wrist brace and was referred to occupational therapy for gentle range of motion. Patient reports today she is doing greater. She continues using her Velcro wrist brace. Denies numbness, tingling, finger locking. [facility] Social History Current occupational status: retired Current occupation: rt hand Review of Systems Const All systems reviewed & are unremarkable except as noted in HPI and below Physical Exam Vital Signs: BMI result Body Mass Index 33.7 Const General: no acute distress and alert Orientation/consciousness: patient oriented x3 HEENT Head: Yes normocephalic and Yes atraumatic Eyes EOM: EOMs intact bilaterally Resp Effort & Inspection: normal respiratory effort and able to speak in complete sentences Cardio Jugular venous distension: no JVD Skin General skin exam: turgor normal Rashes: no rashes Neuro General: patient oriented x3 Extrem Other: Evaluation of Right Upper Extremity: The patient is alert, oriented, and in no acute distress Neuro: Median, Ulnar, Radial nerves motor and sensory intact and sensation is normal to the tips of all digits Vascular: Cap refill brisk ROM: Patient can make a closed fist and extend all digits of the right hand fully Patient is able to flex to approximately 50 degrees and is able to extend to approximately 15-20 degrees Skin: No lacerations or abrasions or evidence of open fracture General: Ecchymosis has resolved No Erythema or evidence of infection. Tender over the fracture site. No lacerations or evidence of open injury. No gross deformity. Good range of motion at the elbow including prono-supination without pain. Radiographs: 3 views of the right wrist were taken and viewed by me today in clinic. They farhana w a comminuted intra-articular distal radius fracture, minimally displaced, with overall satisfactory fracture alignment and no appreciable change since her last radiographs. There may be a small step-off seen on the lateral view, but it also may be looking at the lunate versus scaphoid facets. There is evidence of interval bony healing Psych Appearance: grossly normal Affect: normal affect Attitude: cooperative Assessment & Plan Assessment & Plan (1) Fracture of right distal radius: Code(s): S52.501A - Unspecified fracture of the lower end of right radius, initial encounter for closed fracture Category: Medical Plan 1. Right distal radius fracture Date of injury 03/25/2025 Patient appears to be recovering well from her injury Patient is educated about the typical recovery course At this time, patient is provided with a Velcro wrist splint to be worn with high-risk daytime activities Patient should remove the splint while at rest to work on range of motion of the right wrist Patient is also referred to occupational therapy for gentle range of motion of the right wrist Patient is amenable to this plan Follow-up in 4 -6 weeks for avduw-kq-lswauo check, no x-rays needed unless patient is experiencing further symptoms,, sooner with any acute concerns Orders: Orders XR wrist RT min 3V Today M25.531 - Pain in right wrist Coding Level of Care Code Global (68095) Diagnoses Fracture of right distal radius S52.501A
== END 2025-05-24 14:02 | disposition home or self-care (01) ==
LOC: HO.HOS 13:25
DX: S52.501A Unspecified fracture of the lower end of right radius, initial encounter for closed fracture (principal)
CPT/HCPCS: 99024

== ENCOUNTER → 2025-05-24 13:32 | Outpatient (BNV) | payer MEDICARE, SELFPAY | PROVIDERS: Visit Provider Radiology Diagnostic Radiology | DX: M18.11 Unilateral primary osteoarthritis of first carpometacarpal joint, right hand (principal) | CPT/HCPCS: 73110 ==

== ENCOUNTER 2025-06-10 10:21 | Outpatient (REF) | payer MEDICARE, SELFPAY ==
--- OUTSIDE RECORDS SUMMARY | 2025-06-10 10:24 | XMS_ITS | Clinical Summary ---
Author Organization [facility] Address [address] [place] [address] Care Team Providers Care Mold Blower Name Role Phone Lucille Ames Primary Care [...] patients) (1 - 1-dose 75+ series) 12/26/2023 Alcohol/Substance Use Screening 10/05/2024 Depression Screening and Follow-Up 10/05/2024 Health Care Proxy Review 10/05/2024 Social Drivers of Health Annual Screening 10/05/2024 COVID-19 Vaccine ( season) 2025 01/12/2021, 12/22/2020 Influenza Vaccine (#1) 2025 , 05/24/2020, 07/06/2019, Additional history exists Hepatitis C Screening Completed 11/21/2016 Pneumococcal Vaccine: 50+ Years Completed 06/18/2018, 09/10/2016, 11/07/2010 Hepatitis B Vaccines Aged Out No long er eligible based on patient's age to complete this topic Procedures * Due to [place] [employer] law, this organization might not be sharing negative HIV tests. Procedure Name Priority Date/Time Associated Diagnosis Comments HEPATITIS C ANTIBODY, CONVERSION STAT 11/21/2016 8:22 AM EST BASIC METABOLIC PANEL Routine 11/21/2016 6:44 AM EST from Last 3 Months or Most Recently Relevant to Health Maintenance Results * Due to [place] [employer] law, this organization might not be sharing negative HIV tests. * HEPATITIS C ANTIBODY, CONVERSION (11/21/2016 8:22 AM EST) Pathologist [facility] Hepatitis C Antibody Source NON-REACTI VE NON-REACT [facility] Hep C Ab, Signal To Cutoff 0.02 <1.00 [facility] 11/21/2016 8:22 AM EST 11/21/2016 8:36 AM EST us Parker Ovalles MD LAB HISTORICAL RESULTS Final Result [facility] [address] [facility] 3rd Floor, [place] [address], [place] [phone] * (ABNORMAL) Basic Metabolic Panel (11/21/2016 6:44 AM EST) Pathologist [facility] Sodium Blood 136 135 - 145 mmol/L [facility] Potassium Blood 4.5 3.5 - 5.3 mmol/L [facility] Chloride Blood 106 97 - 110 mmol/L [facility] Carbon Dioxide 21(L) 24 - 32 mmol/L [facility] Gap 9 5 - 15 [facility] Glucose 80 70 - 99 mg/dL [facility] BUN 20 7 - 23 mg/dL [facility] Creatinine 1.30(H) 0.50 - 1.20 mg/dL [facility] eGFR Non- 41(L) >60 [facility] Comment: Units = mL/min/1.73 [...] Calcium Blood 8.1(L) 8.7 - 10.7 mg/dL [facility] 11/21/2016 6:44 AM EST 11/21/2016 7:21 AM EST us Parker Ovalles MD LAB BLOOD ORDERABLES Final Re sult [facility] [address] [place] [address], from Last 3 Months or Most Recently Relevant to Health Maintenance Insurance MEDICARE [facility] MCR SUPP AARP Care Teams Mold Blower Relationship Specialty Start Date End Date Lucille Ames [address] [place] [id number] PCP - General 04/23/17
--- OUTSIDE RECORDS SUMMARY | 2025-06-10 10:24 | XMS_ITS | Encounter Summary ---
Author Organization [facility], Address [address] [place] [address] Phone Care Team Providers Care Finisher Merchant Products Name Role Phone Lucille Ames MD Primary Care Provider [phone] Reason for Visit * Reason Comments Med Refill Encounter Details Date Type Department Care Team (Late st Contact Info) Description 07/18/2024 Refill [facility] [address] [place] [phone] Tyshawn Waters, DO [address] [place] [address] Social History Tobacco Use Types Packs/Day Years [...] on filedocumented in this encounter Care Teams Finisher Merchant Products Relationship Specialty Start Date End Date Lucille Ames MD [address] [phone] PCP - General 08/09/19 documented as of this encounter
--- OUTSIDE RECORDS SUMMARY | 2025-06-10 10:24 | XMS_ITS | Clinical Summary ---
Author Organization 175 [facility] Address [address] [place] [address] Phone Care Team Providers Care Environmental Web Crawler Name Role Phone Angie Ames MD Primary Care Provider [phone] Allergies No known active allergies Medications losartan [...] kidney disease) stage 3, GFR 30-59 ml/min ([facility] V24, [facility] V28) 05/05/2017 Left heart failure ([facility] V24, [facility] V28) Allergic rhinitis 09/04/2015 Depression 09/04/2015 Vitamin B12 deficiency 02/27/2015 GERD (gastroesophageal reflux disease) 4 Immunizations Name Administration Dates Next Due Influenza trivalent, 0.5mL ( Fluzone High-dose) 65yo and older 07/06/2019 Influenza trivalent, with pr eservative (Fluzone; Afluria) 6mo and older 06/18/2018 Influenza, Unspecified 06/12/2022 [facility] SARS-CoV-2 COVID-19, mRNA, LNP-S, preservative free 02/07/[address] [facility] SARS-CoV-2 COVID-19, mRNA, LNP-S, preservative free 08/11/2021,01/12/2021,12/22/2020 Pneumococcal conjugate 13 va lent (Prevnar 13, PCV13) 2mo and older 09/10/2016 Pneumococcal polysaccharide 23 valent (Pneumovax 23) 2yo and older 02/14/2015 Zoster recombinant (Shingrix ) 19yo and older 06/12/2022 Surgical History Surgery Date Site/Laterality Comments HERNIA REPAIR PROCEDURE: HISTORICAL HERNIA REPAIR/MARYANN HYSTERECTOMY PROCEDURE: HISTORICAL HYSTERECTOMY OTHER SURGICAL HISTORY PROCEDURE: HI COLECTOMY TOT ABDL W/PROCTECTOMY W/CONTNT ILEOST OTHER SURGICAL HISTORY PROCEDURE: HISTORY OTHER; COMMENT: reversal ileostomy Medical History Medical History Date Comments CKD (chronic kidney disease) stage 3, GFR 30-59 ml/min ([facility] V24, [facility] V28) 05/05/2017 DX:CKD (chronic kidney disea se) stage 3, GFR 30-59 ml/min ([facility]) Allergic rhinitis 09/04/2015 DX:Allergic rh initis Depression 09/04/2015 DX:Depression GERD (gastroesophageal reflux disease) 12/14/2013 DX:GERD (gastroesophageal reflux disease) History of uterine cancer 02/22/2013 DX:His tory of uterine cancer Hypertension 03/10/2018 DX:Hypertension Left heart failure ([facility] V24, [facility] V28) 05/02/2016 DX:Left heart failure ([facility]) Vitamin B12 deficiency 02/27/2015 DX:Vitami n [...] Care Team (Late st Contact Info) Description 06/23/2025 12:45 PM EDT Clinical Support [facility] [address] [place] [phone] 07/03/2025 2:00 PM EDT Office Visit Orthopedic Surgery - [place] [address] [address] Yaya Whitlock, DPM [address] [address] Health Maintenance Due Date Last Done Comments DTaP,Tdap,and Td Vaccines (1 - Tdap) 12/26/1967 Hepatitis C Screening 09/13/2022 Osteoporosis Screening (Bone Density Screening) 09/13/2022 Social Influencers of Health Screening 09/13/2022 Depression Screening 10/05/2024 03/21/2024 Falls Risk Assessment 03/21/2025 03/21/2024 Medicare Annual Wellness Visit 03/21/2025 03/21/2024 COVID-19 Vaccine (8 - Pfizer risk 2023- season) 2025 07/10/2024, 08/08/2023, 08/07/2022, Additional history exists Influenza Vaccine (#1) 2025 , 07/09/2023, 07/17/2022, [...] mmol/L LAB CHEMISTRY METHOD 09/23/2024 3:49 PM [facility] Potassium 4.6 3.5 - 5.5 mmol/L LAB CHEMISTRY METHOD 09/23/2024 3:49 PM [facility] Chloride 112(H) 96 - 110 mmol/L LAB CHEMISTRY METHOD 09/23/2024 3:49 PM [facility] CO2 24 21 - 32 mmol/L LAB CHEMISTRY METHOD 09/23/2024 3:49 PM [facility] Anion Gap 5 3 - 11 LAB CHEMISTRY METHOD 09/23/2024 3:49 PM [facility] Glucose 97 70 - 100 mg/dL LAB CHEMISTRY METHOD 09/23/2024 3:49 PM [facility] BUN 23 5 - 25 mg/dL LAB CHEMISTRY METHOD 09/23/2024 3:49 PM [facility] Creatinine 1.45(H) 0.50 - 1.10 mg/dL LAB CHEMISTRY METHOD 09/23/2024 3:49 PM [facility] eGFR 38(L) >=60 mL/min/1. 73m2 LAB CHEMISTRY METHOD 09/23/2024 3:49 PM [facility] Comment:Calculation based on the Chronic Kidney Disease Epidemiology Collaboration (CKD-EPI) equation refit without adjustment for race. BUN/Creatinine Ratio 15.9 LAB CHEMISTRY METHOD 09/23/2024 3:49 PM [facility] Calcium 8.8 8.5 - 10.5 mg/dL LAB CHEMISTRY METHOD 09/23/2024 3:49 PM [facility] AST (SGOT) 13 10 - 42 unit/L LAB CHEMISTRY METHOD 09/23/2024 3:49 PM [facility] ALT (SGPT) 18 10 - 60 unit/L LAB CHEMISTRY METHOD 09/23/2024 3:49 PM [facility] Alkaline Phosphatase 127(H) 42 - 121 unit/L LAB CHEMISTRY METHOD 09/23/2024 3:49 PM EST [facility] Total Protein 5.9(L) 6.0 - 8.0 g/dL LAB CHEMISTRY METHOD 09/23/2024 3:49 PM EST [facility] Albumin 2.9(L) 3.2 - 5.0 g/dL LAB CHEMISTRY METHOD 09/23/2024 3:49 PM EST [facility] Total Bilirubin 0.5 0.0 - 1.4 mg/dL LAB CHEMISTRY METHOD 09/23/2024 3:49 PM EST [facility] Blood Venous blood specimen / Unknown Venipuncture / Unknown 09/23/2024 11:36 AM EST 09/23/2024 11:36 AM EST Angie Ames MD LAB BLOOD ORDERABLES Final Res ult [facility] [address] [place] [address], [place] [phone] * (ABNORMAL) Lipid panel (03/25/2024) LDL/HDL Ratio [...] AM EST Narrative 08/21/2023 9:30 AM EST [facility] Diagnostic Imaging Department [address] [place] [address] Patient: LAURYN CALIXTO Madi /Age/Sex: 1950 - 72 - F Unit#: [id number] Location/Status: [facility] Mnemonic/Ordering Site: [facility] Ordering Physician: ANGIE AMES MD [facility] Screening Digital - 08/21/2348 Report Status:Signed EXAM: [facility] Screening Digital EXAM DATE AND TIME: 08/21/2023 8:48 AM HISTORY: Screening. Left breast biopsy in 2010, pathology benign. Personal history of endometrial carcinoma. Maternal aunt had breast carcinoma. COMPARISON: 08/19/22, 08/16/21, 08/14/20 TECHNIQUE: Bilateral digital breast tomosynthesis was performed in the CC and MLO projections. Computer aided detection with zPerfect[employer] 3D 3.1 was employed. TISSUE DENSITY: a. [...] Procedure Note Jess Pope MD - 11/10/2023 [facility] Diagnostic Imaging Department [address] [place] [address] Patient: LAURYN CALIXTO /Age/Sex: 1950 - 72 - F Unit#: [id number] Location/Status: [facility] CLI Mnemonic/Ordering Site: [facility] Ordering Physician: ANGIE AMES MD [facility] Screening Digital - 08/21/23 - 0848 Report Status:Signed EXAM: [facility] Screening Digital EXAM DATE AND TIME: 08/21/2023 8:48 AM HISTORY: Screening. Left breast biopsy in 2010, pathology benign.Personal history of endometrial carcinoma. Maternal aunt had breast carcinoma. COMPARISON: 08/19/22, 08/16/21, 08/14/20 TECHNIQUE: Bilateral digital breast tomosynthesis was performed in the CCand MLO projections. Computer aided detection with [employer] 3D 3.1was employed. TISSUE DENSITY: a. The [...] Recently Relevant to Health Maintenance Insurance MEDICARE [facility] Care Teams Environmental Web Crawler Relationship Specialty Start Date End Date Angie Ames MD 175 [facility] [address] [place] [phone] PCP - General Internal Medicine 08/17/18
--- OUTSIDE RECORDS SUMMARY | 2025-06-10 10:25 | XMS_ITS | Patient Health Record ---
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 Plan Of Treatment Pending Test Test Name Order Date [id number] Plate 12/12/2015 11735- Debride <25 sq cm 12/26/2015 Insurance Providers Payer Name Payer Address Payer Phone Subscriber Number Group Number Insured Name Patient Relationship to Insured Coverage Start Date Coverage End Date Medicare National [employer] [address] [place] [address] [id number] JeisonAmber agustinn Self - patient is the insured 6 AARP Secondary to Medicare [address] [place] [address] [id number] JayyuniorAmber agustinn Self - patient is the insured 6 Medical (General) History Medical History History ICD Code Anxiety Back,Hip,and Knee pain cancer Diverticulosis Hiatal hernia High blood pressure Poor circulation Reflux Stroke Measles Mumps Chicken pox Transfusions Surgical History Surgery Date(Month/Year) Gall bladder Hysterectomy 1999 part of Intestines removed 3 c-sections 1969,1973,1978
--- OUTSIDE RECORDS SUMMARY | 2025-06-10 10:25 | XMS_ITS | Clinical Summary ---
Author Organization [facility], Address [address] [place] [address] Phone Care Team Providers Care Ip Attorney Name Role Phone Lucille Ames MD Primary Care Provider [phone] Allergies No known active allergies Medications sertraline (ZOLOFT) 100 MG tablet Take 100 mg by mouth 1 (one) time each day Active MAGNESIUM OXIDE 400 PO Take 400 mg by mouth 4 (four) times a day Active loperamide (IMODIUM) 2 MG capsule Take 2 mg by mouth 4 times a day Active Ascorbic Acid (VITAMIN C) 500 MG tablet Take 500 mg by mouth 1 (one) time each day Active psyllium (METAMUCIL) 0.52 g capsule Take 0.52 g by mouth 1 (one) time each day Active zinc sulfate (ZINCATE) 220 (50 Zn) MG capsule Take 220 mg by mouth 1 (one) time each day Active aspirin (ST JAZMYN) 81 MG EC tablet Take 81 mg by mouth 1 (one) time each day Active sodium bicarbonate 650 MG tablet Take 1,300 mg by mouth 3 (three) times a day Active cyanocobalamin (VITAMIN B-12) 1000 MCG tablet Take 1,000 mcg by mouth every other day Active carvedilol (COREG) 12.5 MG tablet Take 12.5 mg by mouth 2 (two) times a day with meals Active losartan (COZAAR) 50 MG tablet Take 50 mg by mouth 1 (one) time each day Active sulfamethoxazole -trimethoprim (BACTRIM DS,SEPTRA DS) 800-160 MG per tablet Take 1 tablet by mouth 2 (two) times a day 14 tablet 02/22/2021 Active calcitriol (ROCALTROL) 0.25 MCG capsule TAKE 1 CAPSULE BY MOUTH ONCE DAILY 90 capsule 3 08/26/2024 Active Active Problems Problem Noted Date Diagnosed Date Hypertensive heart and chron ic kidney disease without heart failure, with stage 1 through stage 4 chronic kidney disease, or unspecified chronic kidney disease 02/01/2020 Stage 3b chronic kidney disease 01/31/2020 Overview (10/08/2020): Update for Diagnosis Load Essential hypertension Edema of lower extremity Vitamin B12 deficiency Left heart failure Immunizations Immunization Administration Dates Next Due Influenza Split High Dose Preservative Free IM 0 05/24/2020 Influenza, Quadrivalent, With Preservative 07/06 Pneumococcal Polysaccharide 03/27/2012, 1 Family History Medical History Relation Comments Heart disease Father Hypertension Father Hypertension Mother Kidney disease Mother Relation Status Comments Father Mother Social History Tobacco [...] Sign Reading Time Taken Comments Blood Pressure 132/78 06/01/2019 12:00 PM EDT Pulse 70 06/01/2019 12:00 PM EDT Temperature - - Respiratory Rate - - Oxygen Saturation - - Inhaled Oxygen Concentration - - Weight 96.6 kg (213 lb) 06/01/2019 12:00 PM EDT Height 154.9 cm (5' 1 ) 06/01/2019 12:00 PM EDT Body Mass Index 40.25 06/01/2019 12:00 PM EDT Plan of Treatment Health Maintenance Due Date Last Done Comments Pneumococcal Vaccine: 50+ Years (3 of 3 - PCV) 03/27/2013 03/27/2012, 11/07/2010 Influenza Vaccine (#1) 2025 0, 07/06/2019 Pneumococcal Vaccine: Peds (0 to 5 Years) and At-Risk Patients (6 to 49 Years) Discontinued 03/27/2012, 11/07/2010 Hepatitis B Vaccine Aged Out No longe r eligible based on patient's age to complete this topic Insurance Medicare [facility] Care Teams Ip Attorney Relationship Specialty Start Date End Date Lucille Ames MD [address] [place] [address] PCP - General 08/09/19
[2025-06-10 11:57] LABS: Blood Urea Nitrogen 19 mg/dL (9-16); Estimated Glomerular Filt Rate 41
== END 2025-06-10 10:22 | disposition home or self-care (01) ==
LOC: HO.LAB 10:21
PROVIDERS: PCP Internal Medicine; Visit Provider Radiology Vascular & Interventional Radiology
DX: R79.89 Other specified abnormal findings of blood chemistry (principal); R94.4 Abnormal results of kidney function studies
CPT/HCPCS: 36415; 82565; 84520

== ENCOUNTER 2025-07-21 11:31 | Outpatient (AMB) | payer MEDICARE, SELFPAY ==
--- NOTE | 2025-07-21 11:46 | A.OFFVIS_ITS ---
Vital Signs 07/21/25 11:49 Height 5 ft 3 in Weight 185 lb BMI 32.8 Handedness Right Intake Visit Reasons: OV- ROM check/ Right Distal Radius FX DOI 03/25/25 Intake Note: Lauryn is a 74 year old right hand dominant female who presents today for follow up status post Right Distal Radius Fracture, DOI: 03/25/25. At her last visit she was provided with a Velcro wrist brace to be worn with high-risk daytime activities. Patient was advised to work on ROM outside of the brace and referred to Occupational Therapy. Patient reports she has too much going on and is not able to do OT at this time. At home she works on some ROM and some days she has discomfort. She utilizes her brace if she goes out. She is experiencing numbness and tingling on the dorsal aspect of the right thumb. Allergies No Known Allergies Allergy (Verified 07/21/25 11:50) HPI HPI OV- ROM check/ Right Distal Radius FX DOI 03/25/25: Details: Lauryn is a 74 year old right hand dominant female who presents today for follow up status post Right Distal Radius Fracture, DOI: 03/25/25. At her last visit she was provided with a Velcro wrist brace to be worn with high-risk daytime activities. Patient was advised to work on ROM outside of the brace and referred to Occupational Therapy. Patient reports she has too much going on and is not able to do OT at this time. At home she works on some ROM and some days she has discomfort when attempting range of motion, but denies any pain at baseline. Patient reports no tenderness anywhere in the right wrist.. She utilizes her brace if she goes out. She is experiencing numbness and tingling on the dorsal aspect of the right thumb. [facility] Social History (Updated 07/21/25 @ 11:50 by BAHMAN Dickens) Patient Tobacco Use Status: Never used Tobacco Current occupational status: retired Current occupation: rt hand Review of Systems Const All systems reviewed & are unremarkable except as noted in HPI and below Physical Exam Vital Signs: BMI result Body Mass Index 32.8 Const General: no acute distress and alert Orientation/consciousness: patient oriented x3 HEENT Head: Yes normocephalic and Yes atraumatic Eyes EOM: EOMs intact bilaterally Resp Effort & Inspection: normal respiratory effort and able to speak in complete sentences Cardio Jugular venous distension: no JVD Skin General skin exam: turgor normal Rashes: no rashes Neuro General: patient oriented x3 Extrem Other: Evaluation of Right Upper Extremity: The patient is alert, oriented, and in no acute distress Neuro: Median, Ulnar, Radial nerves motor and sensory intact and sensation is normal to the tips of all digits Vascular: Cap refill brisk ROM: Patient can make a closed fist and extend all digits of the right hand fully Patient is able to flex to approximately 70 degrees and is able to extend to approximately 50 degrees Skin: No lacerations or abrasions or evidence of open fracture General: Ecchymosis has resolved No Erythema or evidence of infection. No longer Tender over the fracture site. No lacerations or evidence of open injury. No gross deformity. Good range of motion at the elbow including prono-supination without pain. Psych Appearance: grossly normal Affect: normal affect Attitude: cooperative Assessment & Plan Assessment & Plan (1) Fracture of right distal radius: Code(s): S52.501A - Unspecified fracture of the lower end of right radius, initial encounter for closed fracture Category: Medical Plan 1. Right distal radius fracture Date of injury 03/25/2025 Patient appears to be recovering well from her injury Patient is educated about the typical recovery course At this time, patient should continue to wear Velcro wrist splint to be worn with high-risk daytime activities for the next 2-3 weeks Patient should remove the splint while at rest to work on range of motion of the right wrist I do not feel that further indicated for this patient, as her range of motion has improved significantly at home Over the next 4-6 weeks, patient can gradually return back to full normal lifting Patient is amenable to this plan Follow-up as needed with any acute concerns Coding Level of Care Code Est Pt Level 3 (72533) Diagnoses Fracture of right distal radius S52.501A
[2025-07-21 11:49] VITALS: BMI 32.8
--- OUTSIDE RECORDS SUMMARY | 2025-07-21 14:18 | XMS_ITS | Encounter Summary ---
Author Organization [facility], Address [address] [place] [address] Phone Care Team Providers Care Social Worker Psychiatric Name Role Phone Lucille Ames MD Primary Care Provider [phone] Reason for Visit * Reason Comments Med Refill Encounter Details Date Type Department Care Team (Late st Contact Info) Description 07/20/2025 Refill [facility] [address] [place] [phone] Tyshawn Waters, DO [address] [place] [address] Social History Tobacco Use Types Packs/Day Years [...] on filedocumented in this encounter Care Teams Social Worker Psychiatric Relationship Specialty Start Date End Date Lucille Ames MD [address] [address] PCP - General 08/09/19 documented as of this encounter
--- OUTSIDE RECORDS SUMMARY | 2025-07-21 14:18 | XMS_ITS | Clinical Summary ---
Author Organization [facility] Address [address] [place] [address] Care Team Providers Care Tube Drawing Supervisor Name Role Phone Lucille Ames Primary Care Provider [phone] Allergies No known active allergies Medications aspirin [...] complete this topic Procedures * Due to [place] Ana[place] law, this organization might not be sharing negative HIV tests. Procedure Name Priority Date/Time Associated Diagnosis Comments HEPATITIS C ANTIBODY, CONVERSION STAT 11/21/2016 8:22 AM EST BASIC METABOLIC PANEL Routine 11/21/2016 6:44 AM EST from Last 3 Months or Most Recently Relevant to Health Maintenance Results * Due to [place] Ana[place] law, this organization might not be sharing negative HIV tests. * HEPATITIS C ANTIBODY, CONVERSION (11/21/2016 8:22 AM EST) Pathologist [facility] Hepatitis C Antibody Source NON-REACTI VE NON-REACT [facility] Hep C Ab, Signal To Cutoff 0.02 <1.00 [facility] 11/21/2016 8:22 AM EST 11/21/2016 8:36 AM EST us Parker Ovalles MD LAB HISTORICAL RESULTS Final Result [facility] [address] [facility] [address], [place] [address], [place] [phone] * (ABNORMAL) Basic Metabolic Panel (11/21/2016 6:44 AM EST) Pathologist [facility] Sodium Blood 136 135 - 145 mmol/L [facility] Potassium Blood 4.5 3.5 - 5.3 mmol/L [facility] Chloride Blood 106 97 - 110 mmol/L [facility] Carbon Dioxide 21(L) 24 - 32 mmol/L [facility] Gap 9 5 - 15 [facility] Glucose 80 70 - 99 mg/dL [facility] BUN 20 7 - 23 mg/dL [facility] Creatinine 1.30(H) 0.50 - 1.20 mg/dL [facility] eGFR Non- 41(L) >60 [facility] Comment: Units = [...] Calcium Blood 8.1(L) 8.7 - 10.7 mg/dL [facility] 11/21/2016 6:44 AM EST 11/21/2016 7:21 AM EST us Parker Ovalles MD LAB BLOOD ORDERABLES Final Re sult [facility] [address] [place] [address], from Last 3 Months or Most Recently Relevant to Health Maintenance Insurance MEDICARE [facility] MCR SUPP AARP Care Teams Tube Drawing Supervisor Relationship Specialty Start Date End Date Lucille Ames [address] [place] [address] PCP - General 04/23/17
--- OUTSIDE RECORDS SUMMARY | 2025-07-21 14:18 | XMS_ITS | Clinical Summary ---
Author Organization [facility], Address [address] [place] [address] Phone Care Team Providers Care Knitting Supervisor Name Role Phone Lucille Ames MD Primary Care Provider [phone] Allergies No known active allergies Medications sertraline [...] extremity Vitamin B12 deficiency Left heart failure Encounters Date Type Department Care Team Description 07/20/2025 [facility]ill [facility] [address] [address] Tyshawn Waters DO 07/04/2025 Refill [facility] [address] [address] Tyshawn Waters DO from Last 3 Months Immunizations Immunization Administration Dates Next Due Influenza [...] Health Maintenance Due Date Last Done Comments Influenza Vaccine (#1) 2025 2, 05/24/2020, 07/06/2019 Pneumococcal Vaccine: 50+ Years Completed 09/10/2016, 02/14/2015, 03/27/2012, Additional history exists Pneumococcal Vaccine: Peds (0 to 5 Years) and At-Risk Patients (6 to 49 Years) Discontinued 09/10/2016, 02/14/2015, 03/27/2012, Additional history exists Hepatitis B Vaccine Aged Out No longe r eligible based on patient's age to complete this topic Insurance Medicare [facility] Care Teams Knitting Supervisor Relationship Specialty Start Date End Date Lucille Ames MD 175 [facility] [address] [place] [address] PCP - General 08/09/19
--- OUTSIDE RECORDS SUMMARY | 2025-07-21 14:18 | XMS_ITS | Encounter Summary ---
Author Organization [facility], Address [address] [place] [address] Phone Care Team Providers Care Regulatory Analyst Name Role Phone Lucille Ames MD Primary Care Provider [phone] Reason for Visit * Reason Comments Med Refill Encounter Details Date Type Department Care Team (Late st Contact Info) Description 07/18/2024 Refill [facility] [address] [place] [phone] Tyshawn Waters, DO [address] [place] [address] Social History Tobacco Use Types Packs/Day Years [...] on filedocumented in this encounter Care Teams Regulatory Analyst Relationship Specialty Start Date End Date Lucille Ames MD [address] [address] PCP - General 08/09/19 documented as of this encounter
--- OUTSIDE RECORDS SUMMARY | 2025-07-21 14:18 | XMS_ITS | Clinical Summary ---
Author Organization [facility] Address [address] [place] [address] Phone Care Team Providers Care Catalyst Operator Gasoline Name Role Phone Angie Ames MD Primary Care Provider [phone] Allergies No known active allergies Medications oxymetazoline (No Drip) 0.05 % nasal spray [...] Take 81 mg by mouth daily. Active famotidine (PEPCID) 20 mg tablet TAKE [...] DAILY 90 tablet 3 05/15/20 25 Active cholecalcifero l (VITAMIN D-3) 25 mcg (1,000 unit) tablet Take 1 tablet (1,000 Units total) by mouth 1 (one) time each day. Active losartan (COZAAR) 50 mg tablet TAKE 1 TABLET BY MOUTH DAILY 90 tablet 3 07/05/20 25 Active carvediloL (COREG) 12.5 mg tablet TAKE 1 TABLET BY MOUTH TWICE DAILY WITH MEALS 180 tablet 3 07/05/20 25 Active losartan (COZAAR) 50 mg tablet Take 1 Tablet by mouth daily. 09/18/20 23 025 Discontinued carvediloL (COREG) 12.5 mg tablet Take 1 tablet (12.5 mg total) by mouth 2 (two) times a day with meals. 180 tablet 3 08/29/20 24 025 Discontinued Active Problems Problem Noted Date Diagnosed Date Chronic pain of both knees 01/25/2024 Gait instability 01/25/2024 Primary osteoarthritis of left knee 01/25/2024 Primary osteoarthritis of right knee 01/25/2024 Bacterial endocarditis 02/21/2021 Hypertension 03/10/2018 CKD (chronic kidney disease) stage 3, GFR 30-59 ml/min ([facility] V24, [facility] V28) 05/05/2017 Left heart failure ([facility] V24, [facility] V28) Allergic rhinitis 09/04/2015 Depression 09/04/2015 Vitamin B12 deficiency 02/27/2015 GERD (gastroesophageal reflux disease) 4 Encounters Date Type Department Care Team Description 07/07/2025 10:15 AM EDT Office Visit [facility] [address] [place] [phone] Marcel Paul, [place] Chronic venous hypertension (idiopathic) with ulcer of right lower extremity ([facility] V24, [facility] V28) (Primary Dx); Non-pressure chronic ulcer right lower leg, limited to breakdown skin (CMS/HCC V24, CMS/HCC V28) 06/30/2025 10:30 AM EDT Office Visit [facility] [address] [place] [phone] Marcel Paul PA Chronic venous hypertension (idiopathic) with ulcer of right lower extremity ([facility]/HCC V24, CMS/HCC V28) (Primary Dx); Non-pressure chronic ulcer right lower leg, limited to breakdown skin (CMS/HCC V24, CMS/HCC V28) 06/23/2025 12:45 PM EDT Office Visit [facility] [address] [place] [phone] Marcel Paul PA Chronic venous hypertension (idiopathic) with ulcer of right lower extremity (CMS/HCC V24, CMS/HCC V28) (Primary Dx); Non-pressure chronic ulcer right lower leg, limited to breakdown skin ([facility] V24, CMS/HCC V28) from Last 3 Months Immunizations Immunization Administration Dates Next Due Influenza trivalent, 0.5mL ( Fluzone High-dose) 65yo and older 07/06/2019 Influenza trivalent, with pr eservative (Fluzone; Afluria) 6mo and older 06/18/2018 Influenza, Unspecified 06/12/2022 Moderna SARS-CoV-2 COVID-19, mRNA, LNP-S, preservative free 02/07/2022 Pfizer SARS-CoV-2 COVID-19, mRNA, LNP-S, preservative free 08/11/2021,01/12/2021,12/22/2020 Pneumococcal conjugate 13 va lent (Prevnar 13, PCV13) 2mo and older 09/10/2016 Pneumococcal polysaccharide 23 valent (Pneumovax 23) 2yo and older 02/14/2015 Zoster recombinant (Shingrix ) 19yo and older 06/12/2022 Surgical History Surgery Date Site/Laterality Comments HERNIA REPAIR PROCEDURE: HISTORICAL HERNIA REPAIR/MARYANN HYSTERECTOMY PROCEDURE: HISTORICAL HYSTERECTOMY OTHER SURGICAL HISTORY PROCEDURE: CO COLECTOMY TOT ABDL W/PROCTECTOMY W/CONTNT ILEOST OTHER SURGICAL HISTORY PROCEDURE: HISTORY OTHER; COMMENT: reversal ileostomy SECTION x3- 1970,1974,1979 Medical History Medical History Date Comments CKD (chronic kidney disease) stage 3, GFR 30-59 ml/min [place] [place] [facility] [place] 05/05/2017 DX:CKD (chronic kidney disea se) stage 3, GFR 30-59 ml/min ([facility]) Allergic rhinitis 09/04/2015 DX:Allergic rh initis Depression 09/04/2015 DX:Depression GERD (gastroesophageal reflux disease) 12/14/2013 DX:GERD (gastroesophageal reflux disease) History of uterine cancer 02/22/2013 DX:His tory of uterine cancer Hypertension 03/10/2018 DX:Hypertension Left heart failure [place] [place] [facility] [place] 05/02/2016 DX:Left heart failure ([facility]) Vitamin B12 deficiency 02/27/2015 DX:Vitami n B12 deficiency Arthritis Peripheral vascular disease [place] [place] Family History Medical History Relation Name Comments Prostate cancer Brother Heart attack Father Hyperlipidemia Father Hyperlipidemia Mother Relation Name Status Comments Brother Father Mother Social History Tobacco Use Types Packs/Day Years Used Date Smoking Tobacco: Former Smokeless Tobacco: Never Tobacco Cessation:Counseling Given: Not Answered Comments:Quit 1974 Alcohol Use Standard Drinks/Week Comments No 0 (1 standard drink = 0.6 oz pur e alcohol) Comments Unknown Sex and Gender Information Value Date Recorded Sex Assigned at Not on file Legal Sex Female 3:29 PM EST Gender Identity Not on file Sexual Orientation Not on file Obstetrics History Last Filed Vital Signs Vital Sign Reading Time Taken Comments Blood Pressure 158/79 07/07/2025 10:11 AM EDT Pulse 63 07/07/2025 10:11 AM EDT Temperature 36.7 C (98 F) 07/07/2025 10:11 AM EDT Respiratory Rate 20 07/07/2025 10:11 AM EDT Oxygen Saturation 99% 07/07/2025 10:11 AM EDT Inhaled Oxygen Concentration - - Weight 83 kg (183 lb) 06/23/2025 12:57 PM EDT Height 160 cm (5' 3 ) 06/23/2025 12:57 PM EDT Body Mass Index 32.42 06/23/2025 12:57 PM EDT Plan of Treatment Upcoming Encounters Date Type Department Care Team (Late st Contact Info) Description 08/04/2025 3:00 PM EDT Office Visit Internal Medicine - [place] [facility] [address] [place] [phone] Angie Ames MD 175 [facility] [address] [place] [phone] Health Maintenance Due Date Last Done Comments DTaP,Tdap,and Td Vaccines (1 - Tdap) 12/26/1967 Hepatitis C Screening 09/13/2022 Osteoporosis Screening (Bone Density Screening) 09/13/2022 Social Influencers of Health Screening 09/13/2022 Medicare Annual Wellness Visit 03/21/2025 03/21/2024 Hypertension/CHF/CAD Annual BMP Blood Test 09/23/2025 09/23/2024, 03/25/2024, 03/25/2024, Additional history exists Falls Risk Assessment 06/23/2026 06/23/2025, 024 Cholesterol Screening (Lipid Panel) 03/25/2029 03/25/2024, 03/25/2024 Pneumococcal Vaccine: 50+ Years Completed 06/18/2018, 09/10/2016, 02/14/2015, Additional history exists Zoster Vaccines Completed 12/15/2022, 06/12/2022 Breast Cancer Screening Discontinued 08/21/20, 08/19/2022, 08/16/2021, Additional history exists RSV Immunization Adult Patients Completed 08/26/2024 COVID-19 Vaccine Completed 06/17/2025, 03/2024, 08/08/2023, Additional history exists Depression Screening Completed 06/23/2025, 03/21/20 24 Influenza Vaccine Completed 07/01/2025, , 07/09/2023, Additional history exists HIB Vaccines Aged Out No longer eligi [...] on patient's age to complete this topic Goals Goal Patient Goal Type Associated Problems Recent Progress Patient-Stated? Author Wound volume breakdown reduced by X% by week 4 Care Plan Impaired Tissue No Nelda Millan RN Wound volume breakdown reduced by X% by week 8 Care Plan Impaired Tissue No Nelda Millan RN Wound volume breakdown reduced by X% by week 12 Care Plan Impaired Tissue No Nelda Millan RN Quit using tobacco (cigarettes, smokeless, etc) Care Plan Education needed on impact of smoking on wound Nelda Mari RN Reduce tobacco use (cigarettes, smokeless, etc) Care Plan Education needed on impact of smoking on wound No Nelda Millan RN Decrease Wound Volume by X% by date (in notes) Care Plan Education needed on impact of smoking on wound No Nelda Millan RN Patient and Caregiver Understand Wound Care Education Care Plan Education needed related to ulceration/compr omised skin integrity. No Nelda Millan RN Procedures Procedure Name Priority Date/Time Associated Diagnosis Comments WOUND CARE PROCEDURE Routine 06/30/2025 10:59 AM EDT Chronic venous hypertension (idiopathic) with ulcer of right lower extremity (CMS/HCC V24, CMS/HCC V28) Non-pressure chronic ulcer right lower leg, limited to breakdown skin (CMS/HCC V24, CMS/HCC V28) WOUND CARE PROCEDURE Routine 06/23/2025 1:20 PM EDT Chronic venous hypertension (idiopathic) with ulcer of right lower extremity (CMS/HCC V24, CMS/HCC V28) Non-pressure chronic ulcer right lower leg, limited to breakdown skin (CMS/HCC V24, CMS/HCC V28) DEBRIDEMENT Routine 06/23/2025 12:45 PM EDT Chronic venous hypertension (idiopathic) with ulcer of right lower extremity (CMS/HCC V24, CMS/HCC V28) Non-pressure chronic ulcer right lower leg, limited to breakdown skin (CMS/HCC V24, CMS/HCC V28) COMPREHENSIVE METABOLIC PANEL Routine 09/23/2024 11:36 AM EST Rib pain on left side Primary hypertension Stage 3a chronic kidney disease (CMS/HCC V24, CMS/HCC V28) Vitamin B12 deficiency Depression, unspecified depression type Hypomagnesemia LIPID PANEL Routine 03/25/2024 HM DEPRESSION SCREENING Routine 03/21/2024 HM FALLS RISK ASSESSMENT Routine 03/21/2024 MAXIMINO SCREENING DIGITAL Routine 08/21/2023 9:30 AM EST Encounter for screening mammogram for malignant neoplasm of breast from Last 3 Months or Most Recently Relevant to Health Maintenance Results * Wound Care Procedure (06/30/2025 10:59 AM EDT) Nikhil Coleman MD - 06/30/2025 10:59 AM EDT Nikhil Arriola MD 07/13/2025 9:27 AM Wound Care Procedure Date/Time: 06/30/2025 10:59 AM Performed by: Yoko Joseph RN Authorized by: JOZEF Whitaker Consent: Consent obtained: Verbal Consent given by: Patient Risks, benefits, and alternatives were discussed: yes Risks discussed: Infection and pain Alternatives discussed: Delayed treatment [place] protocol: Procedure explained and questions answered to patient or proxy's satisfaction: yes Relevant documents present and verified: yes Test results available: yes Patient identity confirmed: Verbally with patient Sedation: Sedation type: None Anesthesia: Anesthesia method: None Procedure details: Indications: open wounds Wound location: Leg Leg location: R lower leg Dressing: Dressing: coban 2 copression wrap system. Post-procedure details: Procedure completion: Tolerated us Marcel HASKINS IN CLINIC/BEDSIDE ORDERABLE S Final Result * Wound Care Procedure Venous Ulcer Pretibial Right (06/23/2025 1:20 PM EDT) Nikhil Coleman MD - 06/23/2025 1:20 PM EDT JOZEF Whitaker 06/23/2025 1:40 PM Wound Care Procedure Venous Ulcer Pretibial Right Date/Time: 06/23/2025 1:20 PM Performed by: Yoko Joseph RN Authorized by: JOZEF Whitaker Associated wounds: Wound Venous Ulcer 06/23/25 Pretibial Right Consent: Consent obtained: Verbal Consent given by: Patient Risks, benefits, and alternatives were discussed: yes Risks discussed: Infection and pain Alternatives discussed: Delayed treatment [place] protocol: Procedure explained and questions answered to patient or proxy's satisfaction: yes Relevant documents present and verified: yes Patient identity confirmed: Verbally with patient Sedation: Sedation type: None Anesthesia: Anesthesia method: None Procedure details: Indications: open wounds Wound location: Leg Leg location: R lower leg Wound age (days): >14 Dressing: Wrapped with: Coban 2 right leg. Post-procedure details: Procedure completion: Tolerated us Marcel HASKINS IN CLINIC/BEDSIDE ORDERABLE S Final Result * Debridement Venous Ulcer (Cluster ) Right Pretibial (06/23/2025 12:45 PM EDT) Nikhil Coleman MD - 06/23/2025 12:45 PM EDT JOZEF Whitaker 06/23/2025 1:40 PM Debridement Venous Ulcer (Cluster ) Right Pretibial Performed by: JOZEF Whitaker Authorized by: JOZEF Whitaker Associated wounds: Wound Venous Ulcer 06/23/25 Pretibial Right Consent: Consent obtained: Verbal Consent given by: Patient Risks discussed: Yes Time out: Immediately prior to the procedure a time out was called Debridement Details: Performed by: JOZEF Type: selective Pain control: Lidocaine 5% Severity of Tissue Pre Debridement: Limited to breakdown of skin Severity of Tissue Post Debridement: Limited to breakdown of skin Time taken: 06/23/2025 1:09 PM Length (cm): 1.2 (Cluster of 2 ) Width (cm): 2.5 Depth (cm): 0.1 Area (cm^2): 3 Time taken: 06/23/2025 1:10 PM Length (cm): 1.2 Width (cm): 2.5 Depth (cm): 0.1 Percent Debrided (%): 50 Surface Area (cm^2): 3 Area Debrided (cm^2): 1.5 Volume (cm^3): 0.3 Tissue and other material debrided: dermis and epidermis Devitalized tissue debrided: exudate and fibrin Instrument: Curette Amount of bleeding: none Hemostasis obtained with: Not applicable Procedural pain: Insensate Post-procedural pain: Insensate Response to treatment: Procedure was tolerated well Marcel HASKINS IN CLINIC/BEDSIDE ORDERABLE S Final Result * (ABNORMAL) Comprehensive metabolic panel [...] 09/23/2024 3:49 PM [facility] Total Protein 5.9(L) 6.0 - 8.0 g/dL LAB CHEMISTRY METHOD 09/23/2024 3:49 PM [facility] Albumin 2.9(L) 3.2 - 5.0 g/dL LAB CHEMISTRY METHOD 09/23/2024 3:49 PM [facility] Total Bilirubin 0.5 0.0 - 1.4 mg/dL LAB CHEMISTRY METHOD 09/23/2024 3:49 PM [facility] Blood Venous blood specimen / Unknown Venipuncture / Unknown 09/23/2024 11:36 AM EST 09/23/2024 11:36 AM EST us Angie Ames MD LAB BLOOD ORDERABLES Final Res ult [facility] [address] [place] [address], * (ABNORMAL) Lipid panel (03/25/2024) LDL/HDL Ratio 4 0 - 4 Triglycerides 161(A) 0 - 150 mg/dL Cholesterol 175 0 - 200 mg/dL HDL 45 >=40 mg/dL LDL Cholesterol 98 0 - 100 mg/dL Blood Venous blood specimen / Unknown us Historical Provider LAB BLOOD ORDERABLES Wendy l Result * Falls Risk Assessment (03/21/2024) Falls Risk Assessment Abstracted us Historical Provider HEALTH MAINTENANCE Final Result * Depression Screening (03/21/2024) HM Depression Screening Abstracted us Historical Provider HEALTH MAINTENANCE Final Result * MAXIMINO SCREENING DIGITAL (08/21/2023 9:30 AM EST) Anatomical Region Laterality Modality Mammography 08/21/2023 8:28 AM EST Narrative 08/21/2023 9:30 AM EST [facility] Diagnostic Imaging Department [address] [place] [address] Patient: LAURYN CALIXTO Madi /Age/Sex: 1950 - 72 - F Unit#: [id number] Location/Status: [facility]onic/Ordering Site: [facility] Ordering Physician: ANGIE AMES MD Maximino Screening Digital - 08/21/2348 Report Status:Signed EXAM: Maximino Screening Digital EXAM DATE AND TIME: 08/21/2023 8:48 AM HISTORY: Screening. Left breast biopsy in 2010, pathology benign. Personal history of endometrial carcinoma. Maternal aunt had breast carcinoma. COMPARISON: 08/19/22, 08/16/21, 08/14/20 TECHNIQUE: Bilateral digital breast tomosynthesis was performed in the CC and MLO projections. 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 TISSUE DENSITY: a. [...] Procedure Note Jess Pope MD - 11/10/2023 [facility] Diagnostic Imaging Department [address] [place] [address] Patient: LAURYN CALIXTO /Age/Sex: 1950 - 72 - F Unit#: [id number] Location/Status: [facility]/REG CLI Mnemonic/Ordering Site: [facility] Ordering Physician: ANGIE AMES MD [facility] Screening Digital - 08/21/23 - 0848 Report Status:Signed EXAM: [facility] Screening Digital EXAM DATE AND TIME: 08/21/2023 8:48 AM HISTORY: Screening. Left breast biopsy in 2011, pathology benign.Personal history of endometrial carcinoma. Maternal aunt had breast carcinoma. COMPARISON: 08/19/22, 08/16/21, 08/14/20 TECHNIQUE: Bilateral digital breast tomosynthesis was performed in the CCand MLO projections. Computer aided detection with [employer] 3D 3.1was employed. TISSUE DENSITY: a. The [...] or Most Recently Relevant to Health Maintenance Additional Health Concerns Active Problems Noted Date Diagnosed Date Impaired Tissue 06/23/2025 Education needed on impact of smoking on wound 0 06/23/2025 Education needed related to ulceration/compromised skin integrity. 06/23/2025 Insurance MEDICARE [employer] Care Teams Catalyst Operator Gasoline Relationship Specialty Start Date End Date Angie Ames MD [address] [phone] PCP - General Internal Medicine 08/17/18
--- OUTSIDE RECORDS SUMMARY | 2025-07-21 14:18 | XMS_ITS | Patient Health Record ---
[facility] Address [address] [place] [address] Care Team Providers Care Senior Network Security Engineer Name Role Phone Kwaku SINGH, [facility] Primary Care Provider UnavailJd Vu Unavailable [phone] Reason For Referral No Information Medications Medication [...] atherosclerosis of arteries of lower limbs (disorder) ([id number] ) Unspecified atherosclerosis of [place] arteries of extremities, bilateral legs (I70.203) Active confirmed Plan Of Treatment Pending Test Test Name Order Date [id number] Plate 12/12/2015 03990- Debride <25 sq cm 12/26/2015 Insurance Providers Payer Name Payer Address Payer Phone Subscriber Number Group Number Insured Name Patient Relationship to Insured Coverage Start Date Coverage End Date Medicare National [employer]t S[employer] [address] [facility] [address] [id number] JeisonAmber agustinn Self - patient is the insured 6 AARP Secondary to Medicare [address] [place] [address] [id number] JayyuniorAmber agustinn Self - patient is the insured 6 Medical (General) History Medical History History ICD Code Anxiety Back,Hip,and Knee pain cancer Diverticulosis Hiatal hernia High blood pressure Poor circulation Reflux Stroke Measles Mumps Chicken pox Transfusions Surgical History Surgery Date(Month/Year) Gall bladder Hysterectomy 1999 part of Intestines removed 3 c-sections 1969,1973,1978
== END 2025-07-21 12:04 | disposition home or self-care (01) ==
LOC: HO.HOS 11:32
DX: S52.501A Unspecified fracture of the lower end of right radius, initial encounter for closed fracture (principal)
CPT/HCPCS: 99213

== ENCOUNTER → 2025-07-21 11:31 | Outpatient (BNVA) | payer MEDICARE, SELFPAY | DX: S52.501D Unspecified fracture of the lower end of right radius, subsequent encounter for closed fracture with routine healing (principal) | CPT/HCPCS: 99212 ==